=== PATIENT | female | born 1995 | race Caucasian/White ===

== ENCOUNTER 2017-04-05 01:28 | Emergency (ER) | payer OTHER ==
--- NOTE | 2017-04-05 02:07 | EDM.PDOC ---
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 Onset: Sudden Duration: Hour(s): (2 hours ago), Improving Location: Reports: Back Quality: Reports: Ache Severity: Moderate Improves with: Reports: None Worsens with: Reports: None Context: Reports: Activity, Lifting Associated Symptoms: Reports: No Other Symptoms Lower Back Pain Score (Numeric/FACES): 4 - Related Data Allergies Allergy/AdvReac Type Severity Reaction Status Date / Time Sulfa (Sulfonamide Allergy Itching Verified 04/05/17 01:31 Antibiotics) Home Meds: Home Meds Ethinyl Estradiol/Drospirenone [Ocella 3 MG-0.03 MG] 1 cap PO DAILY 04/05/17 [ History] FLUoxetine HCl [Prozac] 1 cap PO DAILY 04/05/17 [History] Ibuprofen [Advil] 400 mg PO Q6HR PRN 04/05/17 [History] Oseltamivir [Tamiflu] 1 cap PO BID 04/05/17 [History] Social & Family History - Tobacco Use Smoking Status *Q: Never Smoker Second Hand Smoke Exposure: No - Caffeine Use Caffeine Use: Reports: Energy Drinks, Soda - Recreational Drug Use Recreational Drug Use: No ED ROS GENERAL - Review of Systems Review Of Systems: See Below Constitutional: Reports: No Symptoms HEENT: Reports: No Symptoms Respiratory: Reports: No Symptoms Cardiovascular: Reports: No Symptoms Endocrine: Reports: No Symptoms GI/Abdominal: Reports: No Symptoms : Reports: No Symptoms Musculoskeletal: Reports: No Symptoms Skin: Reports: No Symptoms Neurological: Reports: No Symptoms Psychiatric: Reports: No Symptoms Hematologic/Lymphatic: Reports: No Symptoms Immunologic: Reports: No Symptoms ED EXAM, GENERAL - Physical Exam Exam: See Below Exam Limited By: No Limitations General Appearance: Alert, WD/WN, No Apparent Distress Eye Exam: Bilateral Eye: EOMI, PERRL Ears: Normal External Exam, Normal Canal, Hearing Grossly Normal, Normal TMs Ear Exam: Bilateral Ear: Auricle Normal, Canal Normal, TM normal Nose: Normal Inspection, Normal Mucosa, No Blood Throat/Mouth: Normal Inspection, Normal Lips, Normal Teeth, Normal Gums, Normal Oropharynx, Normal Voice, No Airway Compromise Head: Atraumatic, Normocephalic Neck: Normal Inspection, Supple, Non-Tender, Full Range of Motion Respiratory/Chest: No Respiratory Distress, Lungs Clear, Normal Breath Sounds, No Accessory Muscle Use, Chest Non-Tender Cardiovascular: Normal Peripheral Pulses, Regular Rate, Rhythm, No Edema, No Gallop, No JVD, No Murmur, No Rub GI/Abdominal: Normal Bowel Sounds, Soft, Non-Tender, No Organomegaly, No Distention, No Abnormal Bruit, No Mass (Female) Exam: Deferred Rectal (Female) Exam: Deferred Back Exam: Muscle Spasm, Paraspinal Tenderness (Right lumbar area), Other ( Scoliosis) Extremities: Normal Inspection, Normal Range of Motion, Non-Tender, Normal Capillary Refill, No Pedal Edema Neurological: Alert, Oriented, CN II-XII Intact, Normal Cognition, Normal Gait, Normal Reflexes, No Motor/Sensory Deficits Psychiatric: Normal Affect, Normal Mood Skin Exam: Warm, Dry, Intact, Normal Color, No Rash Lymphatic: No Adenopathy Course - Vital Signs Last Recorded V/S: Last Vital Signs Temp 98.7 F 04/05/17 01:40 Pulse 78 04/05/17 01:40 Resp 14 04/05/17 01:40 BP 111/68 04/05/17 01:40 Pulse Ox 100 04/05/17 01:40 Departure - Departure Time of Disposition: 02:30 Disposition: Home, Self-Care 01 Condition: Good Clinical Impression: Muscle spasm of back - Discharge Information Instructions: Muscle Cramps and Spasms, [id number], Back Pain, Adult, Easy-to -Read Referrals: Tanya Tabor NP [Primary Care Provider] - Forms: ED Department Discharge Care Plan Goals: ED HPI GENERAL MEDICAL PROBLEM - General Chief Complaint: Back Pain or Injury Stated Complaint: Back injury Source of Information: Reports: Patient History Limitations: Reports: No Limitations - History of Present Illness INITIAL COMMENTS - FREE TEXT/NARRATIVE: Patient is a 21-year-old who was who works at [employer] was brought to the ER secondary to lower back injury 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 Onset: Sudden Duration: Hour(s): (2 hours ago), Improving Location: Reports: Back Quality: Reports: Ache Severity: Moderate Improves with: Reports: None Worsens with: Reports: None Context: Reports: Activity, Lifting Associated Symptoms: Reports: No Other Symptoms Lower Back Pain Score (Numeric/FACES): 4 - Related Data Allergies Allergy/AdvReac Type Severity Reaction Status Date / Time Sulfa (Sulfonamide Allergy Itching Verified 04/05/17 01:31 Antibiotics) Home Meds: Home Meds Ethinyl Estradiol/Drospirenone [Ocella 3 MG-0.03 MG] 1 cap PO DAILY 04/05/17 [ History] FLUoxetine HCl [Prozac] 1 cap PO DAILY 04/05/17 [History] Oseltamivir [Tamiflu] 1 cap PO BID 04/05/17 [History] Social & Family History - Tobacco Use Smoking Status *Q: Never Smoker Second Hand Smoke Exposure: No - Caffeine Use Caffeine Use: Reports: Energy Drinks, Soda - Recreational Drug Use Recreational Drug Use: No ED ROS GENERAL - Review of Systems Review Of Systems: See Below Constitutional: Reports: No Symptoms HEENT: Reports: No Symptoms Respiratory: Reports: No Symptoms Cardiovascular: Reports: No Symptoms Endocrine: Reports: No Symptoms GI/Abdominal: Reports: No Symptoms : Reports: No Symptoms Musculoskeletal: Reports: No Symptoms Skin: Reports: No Symptoms Neurological: Reports: No Symptoms Psychiatric: Reports: No Symptoms Hematologic/Lymphatic: Reports: No Symptoms Immunologic: Reports: No Symptoms ED EXAM, GENERAL - Physical Exam Exam: See Below Exam Limited By: No Limitations General Appearance: Alert, WD/WN, No Apparent Distress Eye Exam: Bilateral Eye: EOMI, PERRL Ears: Normal External Exam, Normal Canal, Hearing Grossly Normal, Normal TMs Ear Exam: Bilateral Ear: Auricle Normal, Canal Normal, TM normal Nose: Normal Inspection, Normal Mucosa, No Blood Throat/Mouth: Normal Inspection, Normal Lips, Normal Teeth, Normal Gums, Normal Oropharynx, Normal Voice, No Airway Compromise Head: Atraumatic, Normocephalic Neck: Normal Inspection, Supple, Non-Tender, Full Range of Motion Respiratory/Chest: No Respiratory Distress, Lungs Clear, Normal Breath Sounds, No Accessory Muscle Use, Chest Non-Tender Cardiovascular: Normal Peripheral Pulses, Regular Rate, Rhythm, No Edema, No Gallop, No JVD, No Murmur, No Rub GI/Abdominal: Normal Bowel Sounds, Soft, Non-Tender, No Organomegaly, No Distention, No Abnormal Bruit, No Mass (Female) Exam: Deferred Rectal (Female) Exam: Deferred Back Exam: Muscle Spasm, Paraspinal Tenderness (Right lumbar area), Other ( Scoliosis) Extremities: Normal Inspection, Normal Range of Motion, Non-Tender, Normal Capillary Refill, No Pedal Edema Neurological: Alert, Oriented, CN II-XII Intact, Normal Cognition, Normal Gait, Normal Reflexes, No Motor/Sensory Deficits Psychiatric: Normal Affect, Normal Mood Skin Exam: Warm, Dry, Intact, Normal Color, No Rash Lymphatic: No Adenopathy Course - Vital Signs Last Recorded V/S: Last Vital Signs Temp 98.7 F 04/05/17 01:40 Pulse 78 04/05/17 01:40 Resp 14 04/05/17 01:40 BP 111/68 04/05/17 01:40 Pulse Ox 100 04/05/17 01:40 Departure - Departure Disposition: Home, Self-Care 01 Condition: Good Clinical Impression: Muscle spasm of back - Discharge Information Instructions: Muscle Cramps and Spasms, [id number], Back Pain, Adult, Easy-to -Read Referrals: Tanya Tabor NP [Primary Care Provider] - Patient will be placed i on Flexeril 10 mg 3 times a day for 10 days Motrin 200 mg 2 tablets every 6 hours
== END 2017-04-05 02:50 | disposition home or self-care (01) ==
LOC: LL.ED 01:28
DX: M62.830 Muscle spasm of back (principal); M41.9 Scoliosis, unspecified; Z88.2 Allergy status to sulfonamides; Z79.899 Other long term (current) drug therapy
CPT/HCPCS: 99283

== ENCOUNTER 2017-10-11 18:29 | Inpatient (IN) | payer BC ==
[2017-10-11] MEDS ORDERED: Famotidine 20 MG/2 ML SDV IVPUSH ONE (18:58)
[2017-10-11] MEDS ORDERED: Lactated Ringers 1,000 ML IV ONE (18:58)
[2017-10-11] MEDS ORDERED: Ondansetron 4 MG/2 ML SDV IVPUSH ONE (18:58)
[2017-10-11] MEDS ORDERED: Pantoprazole 40 MG Vial IVPUSH ONE (18:58)
--- NOTE | 2017-10-11 18:58 | EDM.PDOC ---
ED HPI GENERAL MEDICAL PROBLEM - General Chief Complaint: Abdominal Pain Stated Complaint: abdominal pain Time Seen by Provider: 10/11/17 18:45 Source of Information: Reports: Patient, Family (Telephone consultation with the patient's mother), Old Records ([facility] chart/ EMR), Other (Friend) History Limitations: Reports: No Limitations - History of Present Illness INITIAL COMMENTS - FREE TEXT/NARRATIVE: The patient was brought to the emergency room via private automobile by her roommate for evaluation of progressive mostly left upper quadrant abdominal pain associated with some nausea with symptoms worsening since about 4 PM this afternoon. She did have one episode of emesis prior to arrival shortly after taking 400 mg of OTC ibuprofen. Note additional emesis 1 in the emergency room shortly after arrival. Her symptoms actually began on 10/08 with onset of her menses, which was normal, with the patient initially thinking that it was menstrual cramps and possibly exacerbation of her chronic low back pain. She did see her chiropractor on 10/08 with intermittent abdominal complaints since that time. No recent history of heartburn, diarrhea, melena, gross hematochezia , or any food intolerance, including fatty foods, etc. with last bowel movement normal at about 17:00 hours this afternoon. No history of gross hematuria, colic , dysuria, or other UTI symptoms. She denies any known exposure to infection or food poisoning. The patient also denies any recent fever, cough, wheezing, dyspnea, etc... She has not had much to eat or drink today, although did attempt to eat some banana bread at about 17:15 hours this afternoon. Onset: Gradual Onset Date: 10/08/17 Duration: Constant, Getting Worse, Other (As above) Location: Reports: Abdomen. Denies: Neck, Chest, Back, Upper Extremity, Left, Upper Extremity, Right, Generalized, Radiates to Quality: Reports: Same as Previous Episode, Stabbing, Other (Cramping) Severity: Moderate Improves with: Reports: None Worsens with: Reports: None Context: Reports: Other (As above). Denies: Sick Contact Associated Symptoms: Reports: Nausea/Vomiting. Denies: Confusion, Chest Pain, Cough, Diaphoresis, Fever/Chills, Headaches, Loss of Appetite, Malaise, Shortness of Breath, Syncope, Weakness Treatments SERVICE DISPATCHER: Reports: NSAIDS (As above with emesis shortly thereafter) Left Upper Abdominal Pain Score (Numeric/FACES): 8 - Related Data Allergies Allergy/AdvReac Type Severity Reaction Status Date / Time Sulfa (Sulfonamide Allergy Itching Verified 10/11/17 18:45 Antibiotics) Home Meds: Home Meds Ethinyl Estradiol/Drospirenone [Ocella 3 MG-0.03 MG] 1 cap PO DAILY 04/05/17 [ History] FLUoxetine HCl [Prozac] 1 cap PO DAILY 04/05/17 [History] Ibuprofen [Advil] 400 mg PO Q6HR PRN 04/05/17 [History] buPROPion HCl [Wellbutrin Xl] 150 mg PO DAILY 10/11/17 [History] Past Medical History HEENT History: Reports: None. Denies: Allergic Rhinitis, Cataract, Glaucoma, Hard of Hearing, Impaired Vision, Macular Degeneration, Otitis Media, Retinal Detachment Cardiovascular History: Reports: Syncope, Other (See Below). Denies: Afib, Aneurysm, Arrhythmia, Blood Clots/VTE/DVT, CAD, Heart Murmur, High Cholesterol, Hypertension, RI, PVD Other Cardiovascular History: Vasovagal syncope with blood draws with no previous workup. Patient does not know her cholesterol status. Respiratory History: Reports: None. Denies: Asthma, COPD, Intubation, Difficult , Intubation, Previous, PE, Pneumothorax, Sleep Apnea Gastrointestinal History: Reports: None. Denies: Celiac Disease, Cholelithiasis , Gastritis, GERD, GI Bleed, Hepatitis, Inflammatory Bowel Disease, Irritable Bowel Syndrome, Jaundice, Pancreatitis, PUD Genitourinary History: Reports: None. 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 Musculoskeletal History: Reports: Arthritis, Back Pain, Chronic, Osteoarthritis. Denies: Fracture, Fibromyalgia, Gout, Neck Pain, Chronic, RA, SLE Other Musculoskeletal History: Scoliosis Neurological History: Reports: None. Denies: Cerebral Aneurysms, Concussion, CVA, Headaches, Chronic, Head Trauma, Migraines, MS, Parkinson's, Seizure, TIA Psychiatric History: Reports: ADHD, Anxiety, Depression. Denies: Psych Hospitalization(s), PTSD, Suicide Attempt, Suicidal Ideation Endocrine/Metabolic History: Reports: None. Denies: Diabetes, Type I, Diabetes , Type II, Diabetes Mellitus, Type 3c, Hypothyroidism, IDDM Hematologic History: Reports: None. Denies: Anemia, Blood Transfusion(s), Iron Deficiency Immunologic History: Reports: None. Denies: AIDS, HIV, SLE Oncologic (Cancer) History: Reports: None. Denies: Basal Cell Carcinoma, Breast , Hodgkin's Lymphoma, Leukemia, Lymphoma, Malignant Melanoma, Non-Hodgkin's Lymphoma, Squamous Cell Carcinoma Dermatologic History: Reports: None, Other (See Below). Denies: Eczema, Psoriasis Other Dermatologic History: Acne. History of tinea versicolor. - Infectious Disease History Infectious Disease History: Reports: None. Denies: C-Difficile, Chicken Pox, Meningitis, Mononucleosis, MRSA, Mumps, Pertussis (Whooping Cough), Rheumatic Fever, Rubella, Scarlet Fever, Shingles, TB, VRE - Past Surgical History Head Surgeries/Procedures: Reports: None HEENT Surgical History: Reports: Other (See Below). Denies: Adenoidectomy, Cataract Surgery, Eye Surgery, Laser Surgery, Myringotomy w Tube(s), Naso-Sinus Surgery, Oral Surgery, Tonsillectomy Other HEENT Surgeries/Procedures: Pt states that she "had something removed from her lip when she was 7 years old" Cardiovascular Surgical History: Reports: None. Denies: Varicose Respiratory Surgical History: Reports: None. Denies: Thoracentesis GI Surgical History: Reports: None. Denies: Appendectomy, Cholecystectomy, Colonoscopy, EGD, Hernia, Abdominal, Hernia, Inguinal, Hernia Repair/Other Female Surgical History: Reports: None. Denies: Tubal Ligation Endocrine Surgical History: Reports: None. Denies: Thyroid Biopsy Neurological Surgical History: Reports: None. Denies: C-Spine, Discectomy, Laminectomy, Lumbar Spine, Spinal Fusion, Thoracic Spine, Vertebroplasty Musculoskeletal Surgical History: Reports: None. Denies: Arthroscopic Procedure , Carpal Tunnel, Ganglion Cyst, Joint Replacement, ORIF, Shoulder Surgery Oncologic Surgical History: Reports: None Dermatological Surgical History: Reports: None - Past Imaging History Past Imaging History: Reports: None Social & Family History - Family History HEENT: Reports: Glaucoma, Other (See Below). Denies: Macular Degeneration, Retinal Detachment Other HEENT Family History: Maternal grandmother with glaucoma and diabetic retinopathy. Cardiac: Reports: CAD, Heart Failure, Hypertension, RI, Other (See Below). Denies: Afib, Aneurysm, Arrhythmia, Blood Clots/VTE/DVT, High Cholesterol, Pacemaker, Syncope Other Cardiac Family History: Paternal grandmother history of recurrent MIs and CHF with initial RI at age 57 with CABG 3 at that time and subsequent PTCA/ stents. Father with hypertension. Respiratory: Reports: None. Denies: Asthma, COPD, PE, Pneumothorax, Sleep Apnea GI: Reports: Celiac Disease, Other (See Below). Denies: Cholelithiasis, Colon Polyps, GERD, GI bleed, Hepatitis, Inflammatory Bowel Disease, Irritable Bowel Syndrome, Pancreatitis, PUD Other GI Family History: Paternal grandmother with celiac disease. : Reports: None. Denies: Dialysis, Renal Calculus, Renal Disease/ Insufficiency OBGYN: Reports: Other (See Below). Denies: Dysfunctional uterine bleeding, Endometriosis, Fibroids, Recurrent Spontaneous Other OBGYN Family History: Severe dysmenorrhea in 2 sisters. Musculoskeletal: Reports: None. Denies: Gout, Osteoarthritis, RA, SLE Neurological: Reports: TIA, Other (See Below). Denies: Alzheimers Disease, Cerebral Aneurysms, CVA, Dementia, Migraines, MS, Parkinson's, Seizure Other Neurological Family History: Paternal grandmother's history of recurrent TIAs. Psychiatric: Reports: Anxiety, Depression, Other (See Below). Denies: Abuse, Victim of, ADD, ADHD, Psych Hospitalization(s), PTSD, Suicide Attempt Other Psychiatric Family History: Anxiety depression disorder in mother, maternal grandmother, and sister. Endocrine/Metabolic: Reports: Diabetes, type II, IDDM, Other (See Below). Denies: Diabetes, Type I, Diabetes Mellitus, Type 3c, Hypothyroidism Other Endocrine/Metabolic Family History: Maternal grandmother with IDDM. Hematologic: Reports: None. Denies: Anemia, SLE, Transfusion Reaction Immunologic: Reports: None. Denies: AIDS, HIV, SLE Dermatologic: Reports: Eczema, Other (See Below). Denies: Psoriasis Other Dermatologic Family History: Mother with eczema. Oncologic: Reports: None. Denies: Breast, Cervix, Colon, Hodgkin's Lymphoma, Leukemia, Lymphoma, Non-Hodgkin's Lymphoma, Ovarian, Skin, Uterine - Tobacco Use Smoking Status *Q: Never Smoker Tobacco Use Within Last Twelve Months: No Used Tobacco, but Quit: No Smoking Cessation Information Provided To Patient: No Second Hand Smoke Exposure: No Second Hand Smoke Education Provided: No - Caffeine Use Caffeine Use: Reports: Energy Drinks (1 can 2 times per month), Soda (1 soda per day). Denies: Coffee, Tea - Alcohol Use Alcohol Use History: Yes Days Per Week of Alcohol Use: 1 Number of Drinks Per Day: 3 Number of Drinks Per Day Comment: Usually mixed drinks. No previous DWIs, problems with alcohol abuse, etc. Total Drinks Per Week: 3 Alcohol Use in Last Twelve Months: Yes Alcohol Use Frequency: Weekly - Recreational Drug Use Recreational Drug Use: No Drug Use in Last 12 Months: No Recreational Drug Type: Reports: Marijuana/Hashish (Experimental 1 at age 21.) . 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 ED EXAM, GI/ABD - Physical Exam Exam: See Below Exam Limited By: No Limitations General Appearance: Alert, WD/WN, No Apparent Distress, Anxious (Mild) Eyes: Bilateral: Normal Appearance (No nystagmus), EOMI (PERRLA) Ears: Normal External Exam, Normal Canal, Hearing Grossly Normal, Normal TMs Nose: Normal Inspection, Normal Mucosa, No Blood Throat/Mouth: Normal Inspection, Normal Lips, Normal Teeth, Normal Gums, Normal Voice, No Airway Compromise, Other (Dry oral mucosa). No: Dysphagia, Perioral Cyanosis Head: Atraumatic, Normocephalic. No: Facial Swelling, Facial Tenderness, Sinus Tenderness Neck: Normal Inspection, Supple, Non-Tender, Full Range of Motion. No: Carotid Bruit, Lymphadenopathy (L), Lymphadenopathy (R), Thyromegaly Respiratory/Chest: No Respiratory Distress, Lungs Clear, Normal Breath Sounds, No Accessory Muscle Use, Chest Non-Tender. No: Pleural Rub, Retractions Cardiovascular: Normal Peripheral Pulses, No Edema, No Gallop, No JVD, No Murmur , No Rub, Bradycardia (Mild to moderate with regular rhythm). No: Gallop/S3, Gallop/S4, Friction Rub GI/Abdominal Exam: Normal Bowel Sounds, No Organomegaly, No Distention, No Abnormal Bruit, No Mass, Pelvis Stable, Tender (Moderate left upper quadrant palpation pain). No: Guarding, Rigid, Rebound (Female) Exam: Deferred Rectal (Female) Exam: Normal Exam, Normal Rectal Tone, Heme - Stool. No: Fecal Impaction, Tenderness (No Garett space tenderness) Back Exam: Full Range of Motion, Other (Mild scoliosis). No: CVA Tenderness (L) , CVA Tenderness (R), Muscle Spasm Extremities: Normal Inspection, Normal Range of Motion, Non-Tender, No Pedal Edema, Normal Capillary Refill. No: La's Sign Neurological: Alert, Oriented, CN II-XII Intact, Normal Cognition, Normal Gait, Normal Reflexes (Negative Babinski's), No Motor/Sensory Deficits Psychiatric: Anxious (Mild), Depressed Mood (mild to moderate with adequate eye contact). No: Flat Affect, Tearful Skin Exam: Warm, Dry, Intact, Normal Color, No Rash, Stud(s) (Right lateral nasal). No: Diaphoretic, Ecchymosis, Pallor, Petechiae, Wound/Incision Course - Vital Signs Last Recorded V/S: Last Vital Signs Temp 36.9 C 10/11/17 18:45 Pulse 47 L 10/11/17 18:45 Resp 14 10/11/17 18:45 BP 106/50 L 10/11/17 18:45 Pulse Ox 100 10/11/17 18:45 Vital Signs - 24 hr 10/11/17 10/11/17 18:42 18:45 Temperature [ 36.9 C 36.9 C Oral] Pulse, 47 L 47 L Peripheral [ Right Pulse Oximetry] Respiratory 14 14 Rate Blood Pressure 106/50 L 106/50 L [Right Upper Arm] O2 Sat by Pulse 100 100 Oximetry - Orders/Labs/Meds Orders: Active Orders 24 hr Category Date Time Status Cardiac Monitoring [RC] . DIRECTED Care 10/11/17 20:42 Ordered Peripheral IV Care [RC] . DIRECTED Care 10/11/17 18:58 Active Nothing Per Oral Diet [DIET] Diet 10/11/17 Breakfast Active Abdomen Pelvis w Cont [CT] Stat Exams 10/11/17 18:58 Stop Req Abdomen Series w Chest 1V [CR] Stat Exams 10/11/17 18:58 Ordered CULTURE BLOOD [BC] Stat Lab 10/11/17 19:50 Received CULTURE BLOOD [BC] Stat Lab 10/11/17 19:55 Received CULTURE URINE [RM] Stat Lab 10/11/17 18:58 Ordered DRUG SCREEN, URINE [URCHEM] Stat Lab 10/11/17 19:12 Ordered H PYLORI STOOL ANTIGEN [MREF] Urgent Lab 10/11/17 18:58 Ordered OCCULT BLOOD DIAGNOSTIC [OP] Stat Lab 10/11/17 18:58 Ordered UA W/MICROSCOPIC [URIN] Stat Lab 10/11/17 18:58 Ordered Sodium Chloride 0.9% [Saline Flush] Med 10/11/17 18:58 Active 10 ml FLUSH ASDIRECTED PRN Blood Culture x2 Reflex Set [OM.PC] Urgent Oth 10/11/17 18:58 Ordered Obtain Past Medical Record [OM.PC] Urgent Oth 10/11/17 18:58 Active Peripheral IV Insertion Adult [OM.PC] Stat Oth 10/11/17 18:58 Ordered Resuscitation Status Stat Resus Stat 10/11/17 18:58 Ordered Medication Orders Sodium Chloride (Saline Flush) 10 ml FLUSH ASDIRECTED PRN PRN Reason: Keep Vein Open Last Admin: 10/11/17 20:07 Dose: 10 ml Labs: Laboratory Tests 10/11/17 10/11/17 10/11/17 Range/Units 19:50 19:50 19:50 WBC 14.4 H (4.0-10.2) K/uL RBC 4.19 (3.77-5.09) M/uL Hgb 12.5 (11.7-15.5) g/dL Hct 37.2 (34.0-46.0) % MCV 88.8 (84.0-98.0) fL MCH 29.8 (28.2-33.3) pg MCHC 33.6 (31.7-36.0) g/dL RDW 12.8 (11.2-14.1) % Plt Count 249 (150-350) K/uL Neut % (Auto) 85.3 H (45.0-80.0) % Lymph % (Auto) 9.3 L (10.0-50.0) % [place] % (Auto) 4.6 (2.0-14.0) % Eos % (Auto) 0.6 (0.0-5.0) % Baso % (Auto) 0.2 (0.0-2.0) % Neut # (Auto) 12.31 H (1.40-7.00) K/uL Lymph # (Auto) 1.34 (0.50-3.50) K/uL [place] # (Auto) 0.66 (0.00-1.00) K/uL Eos # (Auto) 0.09 (0.00-0.50) K/uL Baso # (Auto) 0.03 (0.00-0.20) K/uL PT 10.7 (9.8-11.7) SEC INR 1.0 APTT 22.1 (22.1-29.8) SEC Sodium (136-145) mmol/L Potassium (3.5-5.1) mmol/L Chloride (98-107) mmol/L Carbon Dioxide (21.0-32.0) mmol/L BUN (7-18) mg/dL Creatinine (0.51-1.17) mg/dL Est Cr Clr Drug Dosing mL/min Estimated GFR (MDRD) mL/min Glucose (74-106) mg/dL Lactic Acid (0.4-2.0) mmol/L Uric Acid (2.6-7.2) mg/dL Calcium (8.5-10.1) mg/dL Magnesium (1.8-2.4) mg/dL Total Bilirubin (0.2-1.0) mg/dL AST (15-37) U/L ALT (12-78) U/L Alkaline Phosphatase (46-116) IU/L Total Protein (6.4-8.2) g/dL Albumin (3.4-5.0) g/dL Amylase 62 (25-115) U/L Lipase (73-393) U/L HCG, Qual (NEGATIVE) Ethyl Alcohol (0.000-0.080) g/dL 10/11/17 10/11/17 10/11/17 Range/Units 19:50 19:50 19:50 WBC (4.0-10.2) K/uL RBC (3.77-5.09) M/uL Hgb (11.7-15.5) g/dL Hct (34.0-46.0) % MCV (84.0-98.0) fL MCH (28.2-33.3) pg MCHC (31.7-36.0) g/dL RDW (11.2-14.1) % Plt Count (150-350) K/uL Neut % (Auto) (45.0-80.0) % Lymph % (Auto) (10.0-50.0) % Bingham % (Auto) (2.0-14.0) % Eos % (Auto) (0.0-5.0) % Baso % (Auto) (0.0-2.0) % Neut # (Auto) (1.40-7.00) K/uL Lymph # (Auto) (0.50-3.50) K/uL Bingham # (Auto) (0.00-1.00) K/uL Eos # (Auto) (0.00-0.50) K/uL Baso # (Auto) (0.00-0.20) K/uL PT (9.8-11.7) SEC INR APTT (22.1-29.8) SEC Sodium 137 (136-145) mmol/L Potassium 4.0 (3.5-5.1) mmol/L Chloride 104 (98-107) mmol/L Carbon Dioxide 22.5 (21.0-32.0) mmol/L BUN 11 (7-18) mg/dL Creatinine 0.77 (0.51-1.17) mg/dL Est Cr Clr Drug Dosing 91.80 mL/min Estimated GFR (MDRD) > 60 mL/min Glucose 127 H (74-106) mg/dL Lactic Acid 1.2 (0.4-2.0) mmol/L Uric Acid 3.7 (2.6-7.2) mg/dL Calcium 9.1 (8.5-10.1) mg/dL Magnesium 1.7 L (1.8-2.4) mg/dL Total Bilirubin 0.2 (0.2-1.0) mg/dL AST 21 (15-37) U/L ALT 24 (12-78) U/L Alkaline Phosphatase 57 (46-116) IU/L Total Protein 7.8 (6.4-8.2) g/dL Albumin 3.8 (3.4-5.0) g/dL Amylase (25-115) U/L Lipase 177 (73-393) U/L HCG, Qual Negative (NEGATIVE) Ethyl Alcohol (0.000-0.080) g/dL 10/11/17 Range/Units 19:50 WBC (4.0-10.2) K/uL RBC (3.77-5.09) M/uL Hgb (11.7-15.5) g/dL Hct (34.0-46.0) % MCV (84.0-98.0) fL MCH (28.2-33.3) pg MCHC (31.7-36.0) g/dL RDW (11.2-14.1) % Plt Count (150-350) K/uL Neut % (Auto) (45.0-80.0) % Lymph % (Auto) (10.0-50.0) % [place] % (Auto) (2.0-14.0) % Eos % (Auto) (0.0-5.0) % Baso % (Auto) (0.0-2.0) % Neut # (Auto) (1.40-7.00) K/uL Lymph # (Auto) (0.50-3.50) K/uL [place] # (Auto) (0.00-1.00) K/uL Eos # (Auto) (0.00-0.50) K/uL Baso # (Auto) (0.00-0.20) K/uL PT (9.8-11.7) SEC INR APTT (22.1-29.8) SEC Sodium (136-145) mmol/L Potassium (3.5-5.1) mmol/L Chloride (98-107) mmol/L Carbon Dioxide (21.0-32.0) mmol/L BUN (7-18) mg/dL Creatinine (0.51-1.17) mg/dL Est Cr Clr Drug Dosing mL/min Estimated GFR (MDRD) mL/min Glucose (74-106) mg/dL Lactic Acid (0.4-2.0) mmol/L Uric Acid (2.6-7.2) mg/dL Calcium (8.5-10.1) mg/dL Magnesium (1.8-2.4) mg/dL Total Bilirubin (0.2-1.0) mg/dL AST (15-37) U/L ALT (12-78) U/L Alkaline Phosphatase (46-116) IU/L Total Protein (6.4-8.2) g/dL Albumin (3.4-5.0) g/dL Amylase (25-115) U/L Lipase (73-393) U/L HCG, Qual (NEGATIVE) Ethyl Alcohol 0.002 (0.000-0.080) g/dL Meds: Medications Generic Name Dose Route Start Last Admin Trade Name Freq PRN Reason Stop Dose Admin Sodium Chloride 10 ml 10/11/17 18:58 10/11/17 20:07 Saline Flush FLUSH 10 ml ASDIRECTED PRN Administration Keep Vein Open Discontinued Medications Generic Name Dose Route Start Last Admin Trade Name Freq PRN Reason Stop Dose Admin Famotidine 40 mg 10/11/17 18:58 10/11/17 20:03 Pepcid IVPUSH 10/11/17 18:59 40 mg ONETIME ONE Administration Lactated Ringer's 1,000 mls @ 999 mls/hr 10/11/17 18:58 10/11/17 19:58 Ringers, Lactated IV 10/11/17 19:58 999 mls/hr .BOLUS ONE Administration Ondansetron HCl 4 mg 10/11/17 18:58 10/11/17 19:59 Zofran IVPUSH 10/11/17 18:59 4 mg ONETIME ONE Administration Ondansetron HCl 4 mg 10/11/17 19:23 10/11/17 19:26 Zofran Odt PO 10/11/17 19:24 4 mg ONETIME ONE Administration Pantoprazole Sodium 40 mg 10/11/17 18:58 10/11/17 20:07 Protonix Iv IVPUSH 10/11/17 18:59 40 mg ONETIME ONE Administration - Radiology Interpretation Free Text/Narrative:: Acute abdominal x-rays shows evidence of possible pulmonary obstructive disease with no cardiomegaly, CHF, pulmonary infiltrates, pneumothorax, free air, fluid levels, ileus, obstruction, etc. Mild scoliosis noted. Legal Counsel shows normal sinus rhythm in the 80s with no ectopy or arrhythmia Departure - Departure Time of Disposition: 21:00 Disposition: Admitted As Inpatient 68 Clinical Impression: Abdominal pain, Osteoarthritis, Mixed anxiety depressive disorder, Dehydration , Hypomagnesemia, Bradycardia - Discharge Information *PRESCRIPTION DRUG MONITORING PROGRAM REVIEWED*: Not Applicable *COPY OF PRESCRIPTION DRUG MONITORING REPORT IN PATIENT NIKI: Not Applicable Referrals: PCP,Unknown [Primary Care Provider] - Forms: ED Department Discharge Care Plan Goals: See plan - Problem List & Annotations (1) Abdominal pain SNOMED Code(s): 52762337 Code(s): R10.9 - UNSPECIFIED ABDOMINAL PAIN Status: Acute Priority: High Current Visit: Yes Onset Date: ~10/08/17 Annotation/Comment:: Progressive abdominal pain this afternoon as above. Symptoms likely related to gastritis based on clinical exam with H. pylori to be collected during hospitalization. Note some mild leukocytosis possibly secondary to stress reaction from recurrent nausea and emesis with probable viral gastroenteritis component. Note that IV Rocephin and IV Flagyl will be given as GI prophylaxis. High dose IV Protonix and IV Pepcid were given upon patient's arrival in the emergency room. Patient did require both oral Zofran ODT and IV Zofran with some difficulty obtaining IV access initially. Telephone consultation with the patient's mother, who is in agreement with patient admission. Abdominal assessments with vitals with consideration of CT scan of the abdomen and pelvis depending on her clinical course. Possible further GI workup on an outpatient basis including EGD, etc.. Blood work to be repeated in the a.m. Qualifiers: Abdominal location: left upper quadrant Qualified Code(s): R10.12 - Left upper quadrant pain (2) Mixed anxiety depressive disorder SNOMED Code(s): 759103709 Code(s): F41.8 - OTHER SPECIFIED ANXIETY DISORDERS Status: Chronic Priority: Medium Current Visit: Yes Annotation/Comment:: Somewhat moderate control based on today's examination. Note patient is somewhat thin but no direct or known history of eating disorder. 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 Qualifiers: Osteoarthritis location: multiple joints Osteoarthritis type: primary Qualified Code(s): M15.0 - Primary generalized (osteo)arthritis (4) Bradycardia SNOMED Code(s): 39818328 Code(s): R00.1 - BRADYCARDIA, UNSPECIFIED Status: Acute Priority: Medium Current Visit: Yes Onset Date: 10/11/17 Annotation/Comment:: Initial bradycardia on arrival with cardiac specialist. Improved heart rate in the 80s prior to admission. Continue cardiac specialist during initial phases of hospitalization. No chest pain or anginal complaints. (5) Hypomagnesemia SNOMED Code(s): 145513089 Code(s): E83.42 - HYPOMAGNESEMIA Status: Acute Current Visit: Yes Annotation/Comment:: Initiate magnesium oxide therapy (6) Dehydration SNOMED Code(s): 79680650 Code(s): E86.0 - DEHYDRATION Status: Acute Priority: High Current Visit : Yes Annotation/Comment:: 1 L IV bolus of lactated Ringer's initiated in the emergency room with continuation of aggressive IV fluids during initial phases of hospitalization. She is fairly symptomatic including moderate generalized weakness and dizziness when performing abdominal x-rays. - Problem List Review Problem List Initiated/Reviewed/Updated: Yes - My Orders Last 24 Hours: My Active Orders 10/11/17 18:58 Peripheral IV Care [RC] . DIRECTED Abdomen Pelvis w Cont [CT] Stat Abdomen Series w Chest 1V [CR] Stat CULTURE URINE [RM] Stat H PYLORI STOOL ANTIGEN [MREF] Urgent OCCULT BLOOD DIAGNOSTIC [OP] Stat UA W/MICROSCOPIC [URIN] Stat Sodium Chloride 0.9% [Saline Flush] 10 ml FLUSH ASDIRECTED PRN Blood Culture x2 Reflex Set [OM.PC] Urgent Obtain Past Medical Record [OM.PC] Urgent Peripheral IV Insertion Adult [OM.PC] Stat Resuscitation Status Stat 10/11/17 19:12 DRUG SCREEN, URINE [URCHEM] Stat 10/11/17 19:50 CULTURE BLOOD [BC] Stat 10/11/17 19:55 CULTURE BLOOD [BC] Stat 10/11/17 20:42 Cardiac Monitoring [RC] . DIRECTED 10/11/17 Breakfast Nothing Per Oral Diet [DIET] - Assessment/Plan Admission H&P: Please use this note as an admission H&P Last 24 Hours: My Active Orders 10/11/17 18:58 Peripheral IV Care [RC] . DIRECTED Abdomen Pelvis w Cont [CT] Stat Abdomen Series w Chest 1V [CR] Stat CULTURE URINE [RM] Stat H PYLORI STOOL ANTIGEN [MREF] Urgent OCCULT BLOOD DIAGNOSTIC [OP] Stat UA W/MICROSCOPIC [URIN] Stat Sodium Chloride 0.9% [Saline Flush] 10 ml FLUSH ASDIRECTED PRN Blood Culture x2 Reflex Set [OM.PC] Urgent Obtain Past Medical Record [OM.PC] Urgent Peripheral IV Insertion Adult [OM.PC] Stat Resuscitation Status Stat 10/11/17 19:12 DRUG SCREEN, URINE [URCHEM] Stat 10/11/17 19:50 CULTURE BLOOD [BC] Stat 10/11/17 19:55 CULTURE BLOOD [BC] Stat 10/11/17 20:42 Cardiac Monitoring [RC] . DIRECTED 10/11/17 Breakfast Nothing Per Oral Diet [DIET] Assessment:: As above Plan: As above. Extensive precautions were given to the patient, who is in agreement with the treatment plan. See Patient Instructions for further treatment and plan.
[2017-10-11] MEDS ORDERED: Ondansetron 4 MG Tab.DIS PO ONE (19:23)
[2017-10-11] MEDS: Sodium Chloride 0.9% 10 ML Syringe FLUSH PRN ×2 (20:07→22:56)
[2017-10-11 20:17] LABS: CHLORIDE,CL 104 mmol/L (98-107); SODIUM,NA 137 mmol/L (136-145)
[2017-10-11] MEDS ORDERED: Acetaminophen 325 MG Tab PO PRN (21:03)
[2017-10-11] MEDS ORDERED: Ondansetron 4 MG/2 ML SDV IVPUSH PRN (21:03)
[2017-10-11] MEDS: Lactated Ringers 1,000 ML IV SCH (21:19)
[2017-10-11] MEDS ORDERED: cefTRIAXone 1 GM Vial ONE (21:57)
[2017-10-11] MEDS ORDERED: Ondansetron 4 MG/2 ML SDV ONE (22:05)
[2017-10-11] MEDS: cefTRIAXone 1 GM in Sodium Chloride 0.9% 100 ML IV SCH (22:10)
[2017-10-11] MEDS ORDERED: metroNIDAZOLE/Normal Saline 100 ML ONE (22:49)
[2017-10-11] MEDS ORDERED: Magnesium Oxide 400 MG Tab ONE (22:49)
[2017-10-11] MEDS ORDERED: Temazepam 15 MG Cap ONE (22:49)
[2017-10-11] MEDS: metroNIDAZOLE/Normal Saline 500 MG in Premix Bag 1 BAG IV SCH (22:56)
[2017-10-11] MEDS: Temazepam 15 MG Cap PO PRN (22:56)
[2017-10-11] MEDS: Magnesium Oxide 400 MG Tab PO SCH (22:56)
[2017-10-12] MEDS ORDERED: LORazepam 2 MG/ML SDV IVPUSH ONE (00:22)
[2017-10-12] MEDS ORDERED: HYDROmorphone 0.5 MG/0.5 ML Syringe IVPUSH PRN (00:23)
[2017-10-12] MEDS ORDERED: traMADol 50 MG Tab PO PRN (00:25)
[2017-10-12] MEDS ORDERED: Metoclopramide 10 MG/2 ML SDV ONE (00:28)
[2017-10-12] MEDS ORDERED: LORazepam 2 MG/ML SDV ONE (00:29)
[2017-10-12] MEDS: Sodium Chloride 0.9% 10 ML Syringe FLUSH PRN ×4 (00:34→21:48)
[2017-10-12] MEDS: Metoclopramide 10 MG/2 ML SDV IVPUSH SCH ×2 (00:35→06:18)
[2017-10-12] MEDS: Lactated Ringers 1,000 ML IV SCH (04:14)
[2017-10-12] MEDS: metroNIDAZOLE/Normal Saline 500 MG in Premix Bag 1 BAG IV SCH ×3 (06:19→21:46)
[2017-10-12] MEDS: Pantoprazole 40 MG Vial IVPUSH SCH ×2 (07:29→20:25)
[2017-10-12] MEDS: buPROPion 150 MG Tab.ER PO SCH (07:30)
[2017-10-12] MEDS: Sodium Chloride 0.9% 10 ML Syringe FLUSH SCH ×2 (07:30→20:26)
[2017-10-12] MEDS: FLUoxetine 20 MG Cap PO SCH (07:30)
[2017-10-12] MEDS: Magnesium Oxide 400 MG Tab PO SCH ×2 (07:30→17:41)
[2017-10-12] MEDS ORDERED: [UNRECOGNIZED DRUG - OTHER] PO SCH (08:00)
[2017-10-12] MEDS ORDERED: ETHINYL ESTRADIOL PO SCH (08:00)
[2017-10-12] MEDS ORDERED: DROSPIRENONE PO SCH (08:00)
[2017-10-12] MEDS: cefTRIAXone 1 GM in Sodium Chloride 0.9% 100 ML IV SCH ×2 (08:10→20:24)
[2017-10-12 08:27] LABS: CHLORIDE,CL 106 mmol/L (98-107); SODIUM,NA 140 mmol/L (136-145)
--- NOTE | 2017-10-12 09:02 | PCM.PN ---
- General Info Date of Service: 10/12/17 Admission Dx/Problem (Free Text): 1. Abdominal pain with nausea and emesis 2. Dehydration Functional Status: Reports: Pain Controlled. Denies: Tolerating Diet (Still nothing by mouth, however wants breakfast), Ambulating, Urinating, New Symptoms , Incentive Spirometry Pain Score: 0 - Review of Systems General: Reports: Fever (37.4 this morning), Weakness (Improved), Fatigue ( Improved), Chills. Denies: Malaise, Night Sweats, Appetite (As above) HEENT: Reports: No Symptoms. Denies: Dysphasia, Ear Pain, Eye Pain, Headaches, Post Nasal Drip, Sinus Congestion, Sore Throat, Rhinitis, Visual Changes Pulmonary: Reports: No Symptoms. Denies: Shortness of Breath, Cough, Sputum, Wheezing Cardiovascular: Reports: No Symptoms. Denies: Chest Pain, Palpitations, Dyspnea on Exertion, Orthopnea, Edema, Lightheadedness Gastrointestinal: Reports: No Symptoms, Other (No bowel movement to this point) . Denies: Abdominal Pain, Constipation, Decreased Appetite, Diarrhea, Flatus, Hematochezia, Melena, Nausea, Vomiting Genitourinary: Reports: No Symptoms. Denies: Dysuria, Frequency, Burning, Pain , Urgency, Incontinence, Hematuria, Retention, Flank Pain Musculoskeletal: Reports: No Symptoms. Denies: Neck Pain, Shoulder Pain, Arm Pain, Back Pain, Leg Pain Skin: Reports: No Symptoms. Denies: Diaphoresis, Bruising Neurological: Reports: Weakness (Improved as above). Denies: Confusion, Dizziness, Headache, Numbness, Paresthesia, Syncope, Tingling, Difficulty Walking Psychiatric: Reports: No Symptoms. Denies: Confusion, Depression, Anxiety, Agitation, Hallucinations - Patient Data Vitals - Most Recent: Last Vital Signs Temp 37.4 C 10/12/17 07:55 Pulse 83 10/12/17 07:55 Resp 18 10/12/17 07:55 BP 104/59 L 10/12/17 07:55 Pulse Ox 100 10/12/17 07:55 Vital Signs - 24 hr 10/11/17 10/11/17 10/11/17 18:42 18:45 20:54 Temperature [ 36.9 C 36.9 C Oral] Temperature [ 36.8 C Temporal] Pulse, 84 Peripheral [ Left Pulse Oximetry] Pulse, 47 L 47 L Peripheral [ Right Pulse Oximetry] Respiratory 14 14 12 Rate Blood Pressure 123/74 [Left Upper Arm ] Blood Pressure 106/50 L 106/50 L [Right Upper Arm] O2 Sat by Pulse 100 100 100 Oximetry 10/11/17 10/11/17 10/12/17 21:03 23:30 04:00 Temperature [ Oral] Temperature [ 37.1 C 37.2 C Temporal] Pulse, 52 L 90 Peripheral [ Left Pulse Oximetry] Pulse, Peripheral [ Right Pulse Oximetry] Respiratory 18 14 Rate Blood Pressure 139/83 130/84 [Left Upper Arm ] Blood Pressure [Right Upper Arm] O2 Sat by Pulse 100 100 100 Oximetry 10/12/17 07:55 Temperature [ Oral] Temperature [ 37.4 C Temporal] Pulse, 83 Peripheral [ Left Pulse Oximetry] Pulse, Peripheral [ Right Pulse Oximetry] Respiratory 18 Rate Blood Pressure 104/59 L [Left Upper Arm ] Blood Pressure [Right Upper Arm] O2 Sat by Pulse 100 Oximetry Weight - Most Recent: 51.075 kg I&O - Last 24 Hours: Intake & Output 10/11/17 10/12/17 10/12/17 22:59 06:59 14:59 Intake Total 2034 Output Total 170 700 400 Balance -170 1334 -400 Imaging Impressions - Last 24 Hours: As per emergency room note Lab Results Last 24 Hours: Laboratory Results - last 24 hr 10/11/17 10/11/17 10/11/17 Range/Units 19:50 19:50 19:50 WBC 14.4 H (4.0-10.2) K/uL RBC 4.19 (3.77-5.09) M/uL Hgb 12.5 (11.7-15.5) g/dL Hct 37.2 (34.0-46.0) % MCV 88.8 (84.0-98.0) fL MCH 29.8 (28.2-33.3) pg MCHC 33.6 (31.7-36.0) g/dL RDW 12.8 (11.2-14.1) % Plt Count 249 (150-350) K/uL Neut % (Auto) 85.3 H (45.0-80.0) % Lymph % (Auto) 9.3 L (10.0-50.0) % Hunt % (Auto) 4.6 (2.0-14.0) % Eos % (Auto) 0.6 (0.0-5.0) % Baso % (Auto) 0.2 (0.0-2.0) % Neut # (Auto) 12.31 H (1.40-7.00) K/uL Lymph # (Auto) 1.34 (0.50-3.50) K/uL Hunt # (Auto) 0.66 (0.00-1.00) K/uL Eos # (Auto) 0.09 (0.00-0.50) K/uL Baso # (Auto) 0.03 (0.00-0.20) K/uL PT 10.7 (9.8-11.7) SEC INR 1.0 APTT 22.1 (22.1-29.8) SEC Sodium (136-145) mmol/L Potassium (3.5-5.1) mmol/L Chloride (98-107) mmol/L Carbon Dioxide (21.0-32.0) mmol/L BUN (7-18) mg/dL Creatinine (0.51-1.17) mg/dL Est Cr Clr Drug Dosing mL/min Estimated GFR (MDRD) mL/min Glucose (74-106) mg/dL Lactic Acid (0.4-2.0) mmol/L Uric Acid (2.6-7.2) mg/dL Calcium (8.5-10.1) mg/dL Magnesium (1.8-2.4) mg/dL Total Bilirubin (0.2-1.0) mg/dL AST (15-37) U/L ALT (12-78) U/L Alkaline Phosphatase (46-116) IU/L Total Protein (6.4-8.2) g/dL Albumin (3.4-5.0) g/dL Amylase 62 (25-115) U/L Lipase (73-393) U/L HCG, Qual (NEGATIVE) Specimen Type Urine Color Urine Appearance Urine pH (5.0-9.0) Ur Specific Perry (1.005-1.030) Urine Protein (NEGATIVE) mg/dL Urine Glucose (UA) (NEGATIVE) mg/dL Urine Ketones (NEGATIVE) mg/dL Urine Occult Blood (NEGATIVE) Urine Nitrite (NEGATIVE) Urine Bilirubin (NEGATIVE) Urine Urobilinogen (0.2-1.0) E.U./dL Ur Leukocyte Esterase (NEGATIVE) Urine RBC /HPF Urine WBC /HPF Urine Bacteria (NONE TO FEW) /HPF Urine Opiates Screen (NEGATIVE) Urine Methadone Screen (NEGATIVE) U Acetaminophen Screen (NEGATIVE) Ur Barbiturates Screen (NEGATIVE) Ur Tricyclics Screen (NEGATIVE) Ur Phencyclidine Scrn (NEGATIVE) Ur Amphetamine Screen (NEGATIVE) U Methamphetamines Scrn (NEGATIVE) U Benzodiazepines Scrn (NEGATIVE) U Cocaine Metab Screen (NEGATIVE) U Marijuana (THC) Screen (NEGATIVE) Ethyl Alcohol (0.000-0.080) g/dL 10/11/17 10/11/17 10/11/17 Range/Units 19:50 19:50 19:50 WBC (4.0-10.2) K/uL RBC (3.77-5.09) M/uL Hgb (11.7-15.5) g/dL Hct (34.0-46.0) % MCV (84.0-98.0) fL MCH (28.2-33.3) pg MCHC (31.7-36.0) g/dL RDW (11.2-14.1) % Plt Count (150-350) K/uL Neut % (Auto) (45.0-80.0) % Lymph % (Auto) (10.0-50.0) % Hunt % (Auto) (2.0-14.0) % Eos % (Auto) (0.0-5.0) % Baso % (Auto) (0.0-2.0) % Neut # (Auto) (1.40-7.00) K/uL Lymph # (Auto) (0.50-3.50) K/uL Hunt # (Auto) (0.00-1.00) K/uL Eos # (Auto) (0.00-0.50) K/uL Baso # (Auto) (0.00-0.20) K/uL PT (9.8-11.7) SEC INR APTT (22.1-29.8) SEC Sodium 137 (136-145) mmol/L Potassium 4.0 (3.5-5.1) mmol/L Chloride 104 (98-107) mmol/L Carbon Dioxide 22.5 (21.0-32.0) mmol/L BUN 11 (7-18) mg/dL Creatinine 0.77 (0.51-1.17) mg/dL Est Cr Clr Drug Dosing 91.80 mL/min Estimated GFR (MDRD) > 60 mL/min Glucose 127 H (74-106) mg/dL Lactic Acid 1.2 (0.4-2.0) mmol/L Uric Acid 3.7 (2.6-7.2) mg/dL Calcium 9.1 (8.5-10.1) mg/dL Magnesium 1.7 L (1.8-2.4) mg/dL Total Bilirubin 0.2 (0.2-1.0) mg/dL AST 21 (15-37) U/L ALT 24 (12-78) U/L Alkaline Phosphatase 57 (46-116) IU/L Total Protein 7.8 (6.4-8.2) g/dL Albumin 3.8 (3.4-5.0) g/dL Amylase (25-115) U/L Lipase 177 (73-393) U/L HCG, Qual Negative (NEGATIVE) Specimen Type Urine Color Urine Appearance Urine pH (5.0-9.0) Ur Specific Perry (1.005-1.030) Urine Protein (NEGATIVE) mg/dL Urine Glucose (UA) (NEGATIVE) mg/dL Urine Ketones (NEGATIVE) mg/dL Urine Occult Blood (NEGATIVE) Urine Nitrite (NEGATIVE) Urine Bilirubin (NEGATIVE) Urine Urobilinogen (0.2-1.0) E.U./dL Ur Leukocyte Esterase (NEGATIVE) Urine RBC /HPF Urine WBC /HPF Urine Bacteria (NONE TO FEW) /HPF Urine Opiates Screen (NEGATIVE) Urine Methadone Screen (NEGATIVE) U Acetaminophen Screen (NEGATIVE) Ur Barbiturates Screen (NEGATIVE) Ur Tricyclics Screen (NEGATIVE) Ur Phencyclidine Scrn (NEGATIVE) Ur Amphetamine Screen (NEGATIVE) U Methamphetamines Scrn (NEGATIVE) U Benzodiazepines Scrn (NEGATIVE) U Cocaine Metab Screen (NEGATIVE) U Marijuana (THC) Screen (NEGATIVE) Ethyl Alcohol (0.000-0.080) g/dL 10/11/17 10/11/17 10/11/17 Range/Units 19:50 22:07 22:07 WBC (4.0-10.2) K/uL RBC (3.77-5.09) M/uL Hgb (11.7-15.5) g/dL Hct (34.0-46.0) % MCV (84.0-98.0) fL MCH (28.2-33.3) pg MCHC (31.7-36.0) g/dL RDW (11.2-14.1) % Plt Count (150-350) K/uL Neut % (Auto) (45.0-80.0) % Lymph % (Auto) (10.0-50.0) % Hunt % (Auto) (2.0-14.0) % Eos % (Auto) (0.0-5.0) % Baso % (Auto) (0.0-2.0) % Neut # (Auto) (1.40-7.00) K/uL Lymph # (Auto) (0.50-3.50) K/uL Hunt # (Auto) (0.00-1.00) K/uL Eos # (Auto) (0.00-0.50) K/uL Baso # (Auto) (0.00-0.20) K/uL PT (9.8-11.7) SEC INR APTT (22.1-29.8) SEC Sodium (136-145) mmol/L Potassium (3.5-5.1) mmol/L Chloride (98-107) mmol/L Carbon Dioxide (21.0-32.0) mmol/L BUN (7-18) mg/dL Creatinine (0.51-1.17) mg/dL Est Cr Clr Drug Dosing mL/min Estimated GFR (MDRD) mL/min Glucose (74-106) mg/dL Lactic Acid (0.4-2.0) mmol/L Uric Acid (2.6-7.2) mg/dL Calcium (8.5-10.1) mg/dL Magnesium (1.8-2.4) mg/dL Total Bilirubin (0.2-1.0) mg/dL AST (15-37) U/L ALT (12-78) U/L Alkaline Phosphatase (46-116) IU/L Total Protein (6.4-8.2) g/dL Albumin (3.4-5.0) g/dL Amylase (25-115) U/L Lipase (73-393) U/L HCG, Qual (NEGATIVE) Specimen Type Urinvoid Urine Color Dark yellow Urine Appearance Cloudy Urine pH 6.0 (5.0-9.0) Ur Specific Perry 1.025 (1.005-1.030) Urine Protein Trace H (NEGATIVE) mg/dL Urine Glucose (UA) Negative (NEGATIVE) mg/dL Urine Ketones 80 H (NEGATIVE) mg/dL Urine Occult Blood Large H (NEGATIVE) Urine Nitrite Negative (NEGATIVE) Urine Bilirubin Negative (NEGATIVE) Urine Urobilinogen 0.2 (0.2-1.0) E.U./dL Ur Leukocyte Esterase Negative (NEGATIVE) Urine RBC 75-100 H /HPF Urine WBC 5-10 H /HPF Urine Bacteria Many H (NONE TO FEW) /HPF Urine Opiates Screen Negative (NEGATIVE) Urine Methadone Screen Negative (NEGATIVE) U Acetaminophen Screen Negative (NEGATIVE) Ur Barbiturates Screen Negative (NEGATIVE) Ur Tricyclics Screen Negative (NEGATIVE) Ur Phencyclidine Scrn Negative (NEGATIVE) Ur Amphetamine Screen Negative (NEGATIVE) U Methamphetamines Scrn Negative (NEGATIVE) U Benzodiazepines Scrn Negative (NEGATIVE) U Cocaine Metab Screen Negative (NEGATIVE) U Marijuana (THC) Screen Negative (NEGATIVE) Ethyl Alcohol 0.002 (0.000-0.080) g/dL 10/12/17 10/12/17 Range/Units 07:30 07:30 WBC 11.9 H (4.0-10.2) K/uL RBC 3.82 (3.77-5.09) M/uL Hgb 11.6 L (11.7-15.5) g/dL Hct 34.1 (34.0-46.0) % MCV 89.3 (84.0-98.0) fL MCH 30.4 (28.2-33.3) pg MCHC 34.0 (31.7-36.0) g/dL RDW 12.8 (11.2-14.1) % Plt Count 209 (150-350) K/uL Neut % (Auto) 82.8 H (45.0-80.0) % Lymph % (Auto) 11.0 (10.0-50.0) % Hunt % (Auto) 6.0 (2.0-14.0) % Eos % (Auto) 0.0 (0.0-5.0) % Baso % (Auto) 0.2 (0.0-2.0) % Neut # (Auto) 9.82 H (1.40-7.00) K/uL Lymph # (Auto) 1.30 (0.50-3.50) K/uL Hunt # (Auto) 0.71 (0.00-1.00) K/uL Eos # (Auto) 0.00 (0.00-0.50) K/uL Baso # (Auto) 0.02 (0.00-0.20) K/uL PT (9.8-11.7) SEC INR APTT (22.1-29.8) SEC Sodium 140 (136-145) mmol/L Potassium 3.8 (3.5-5.1) mmol/L Chloride 106 (98-107) mmol/L Carbon Dioxide 23.7 (21.0-32.0) mmol/L BUN 8 (7-18) mg/dL Creatinine 0.75 (0.51-1.17) mg/dL Est Cr Clr Drug Dosing 96.47 mL/min Estimated GFR (MDRD) > 60 mL/min Glucose 117 H (74-106) mg/dL Lactic Acid (0.4-2.0) mmol/L Uric Acid (2.6-7.2) mg/dL Calcium 8.4 L (8.5-10.1) mg/dL Magnesium (1.8-2.4) mg/dL Total Bilirubin 0.3 (0.2-1.0) mg/dL AST 18 (15-37) U/L ALT 19 (12-78) U/L Alkaline Phosphatase 49 (46-116) IU/L Total Protein 6.8 (6.4-8.2) g/dL Albumin 3.3 L (3.4-5.0) g/dL Amylase 53 (25-115) U/L Lipase 158 (73-393) U/L HCG, Qual (NEGATIVE) Specimen Type Urine Color Urine Appearance Urine pH (5.0-9.0) Ur Specific Perry (1.005-1.030) Urine Protein (NEGATIVE) mg/dL Urine Glucose (UA) (NEGATIVE) mg/dL Urine Ketones (NEGATIVE) mg/dL Urine Occult Blood (NEGATIVE) Urine Nitrite (NEGATIVE) Urine Bilirubin (NEGATIVE) Urine Urobilinogen (0.2-1.0) E.U./dL Ur Leukocyte Esterase (NEGATIVE) Urine RBC /HPF Urine WBC /HPF Urine Bacteria (NONE TO FEW) /HPF Urine Opiates Screen (NEGATIVE) Urine Methadone Screen (NEGATIVE) U Acetaminophen Screen (NEGATIVE) Ur Barbiturates Screen (NEGATIVE) Ur Tricyclics Screen (NEGATIVE) Ur Phencyclidine Scrn (NEGATIVE) Ur Amphetamine Screen (NEGATIVE) U Methamphetamines Scrn (NEGATIVE) U Benzodiazepines Scrn (NEGATIVE) U Cocaine Metab Screen (NEGATIVE) U Marijuana (THC) Screen (NEGATIVE) Ethyl Alcohol (0.000-0.080) g/dL David Results Last 24 Hours: Microbiology 10/11/17 20:43 Stool Occult Blood (DAVID) - Final Stool / Feces Hemoccult positive with possible contamination from menses with specimen collected by rectal exam as per emergency room note Blood cultures 2 are pending Urine culture and sensitivity is pending Med Orders - Current: Current Medications Acetaminophen (Tylenol) 650 mg PO Q4H PRN PRN Reason: Pain Bupropion HCl (Wellbutrin Xl) 150 mg PO DAILY [facility] Last Admin: 10/12/17 07:30 Dose: 150 mg Famotidine (Pepcid) 20 mg IVPUSH Q12H [facility] Fluoxetine HCl (Prozac) 20 mg PO DAILY [facility] Last Admin: 10/12/17 07:30 Dose: 20 mg Hydromorphone HCl (Dilaudid) 0.5 mg IVPUSH Q6H PRN PRN Reason: Pain (severe 7-10) Ceftriaxone Sodium 1 gm/ (Sodium Chloride) 100 mls @ 200 mls/hr IV Q12H [facility] Last Admin: 10/12/17 08:10 Dose: 200 mls/hr Metronidazole 500 mg/ Premix 100 mls @ 100 mls/hr IV Q8H [facility] Last Admin: 10/12/17 06:19 Dose: 100 mls/hr Lactated Ringer's (Ringers, Lactated) 1,000 mls @ 150 mls/hr IV ASDIRECTED [facility] Last Admin: 10/12/17 04:14 Dose: 150 mls/hr Magnesium Oxide (Magnesium Oxide) 400 mg PO BID [facility] Last Admin: 10/12/17 07:30 Dose: 400 mg Metoclopramide HCl (Reglan) 10 mg IVPUSH Q6H [facility] Last Admin: 10/12/17 06:18 Dose: 10 mg Non-Formulary Medication (Ethinyl Estradiol/Drospirenone [Ocella 3 Mg-0.03 Mg]) 1 cap PO DAILY [facility] Ondansetron HCl (Zofran) 4 mg IVPUSH Q6H PRN PRN Reason: Nausea/Vomiting Last Admin: 10/11/17 22:09 Dose: 4 mg Pantoprazole Sodium (Protonix Iv) 40 mg IVPUSH Q12H [facility] Last Admin: 10/12/17 07:29 Dose: 40 mg Sodium Chloride (Saline Flush) 10 ml FLUSH ASDIRECTED PRN PRN Reason: Keep Vein Open Last Admin: 10/12/17 08:10 Dose: 10 ml Sodium Chloride (Saline Flush) 10 ml FLUSH Q12HR [facility] Last Admin: 10/12/17 07:30 Dose: 10 ml Temazepam (Restoril) 15 mg PO DAILY@2000 PRN PRN Reason: Insomnia Last Admin: 10/11/17 22:56 Dose: 15 mg Tramadol HCl (Ultram) 50 mg PO Q6H PRN PRN Reason: Pain (moderate 4-6) Last Admin: 10/12/17 04:11 Dose: 50 mg Discontinued Medications Ceftriaxone Sodium (Rocephin) Confirm Administered Dose 1 gm .ROUTE .STK-MED ONE Stop: 10/11/17 21:58 Last Admin: 10/12/17 04:20 Dose: Not Given Famotidine (Pepcid) 40 mg IVPUSH ONETIME ONE Stop: 10/11/17 18:59 Last Admin: 10/11/17 20:03 Dose: 40 mg Lactated Ringer's (Ringers, Lactated) 1,000 mls @ 999 mls/hr IV .BOLUS ONE Stop: 10/11/17 19:58 Last Admin: 10/11/17 19:58 Dose: 999 mls/hr Metronidazole (Flagyl 500 Mg In Ns 100 Ml) Confirm Administered Dose 100 mls @ as directed .ROUTE .STK-MED ONE Stop: 10/11/17 22:50 Last Admin: 10/12/17 04:19 Dose: Not Given Lorazepam (Ativan) 1 mg IVPUSH ONETIME ONE Stop: 10/12/17 00:23 Last Admin: 10/12/17 00:42 Dose: 1 mg Lorazepam (Ativan) Confirm Administered Dose 2 mg .ROUTE .STK-MED ONE Stop: 10/12/17 00:30 Last Admin: 10/12/17 04:19 Dose: Not Given Magnesium Oxide (Magnesium Oxide) Confirm Administered Dose 400 mg .ROUTE .STK- MED ONE Stop: 10/11/17 22:50 Last Admin: 10/12/17 04:20 Dose: Not Given Metoclopramide HCl (Reglan) Confirm Administered Dose 10 mg .ROUTE .STK-MED ONE Stop: 10/12/17 00:29 Last Admin: 10/12/17 04:20 Dose: Not Given Ondansetron HCl (Zofran) 4 mg IVPUSH ONETIME ONE Stop: 10/11/17 18:59 Last Admin: 10/11/17 19:59 Dose: 4 mg Ondansetron HCl (Zofran Odt) 4 mg PO ONETIME ONE Stop: 10/11/17 19:24 Last Admin: 10/11/17 19:26 Dose: 4 mg Ondansetron HCl (Zofran) Confirm Administered Dose 4 mg .ROUTE .STK-MED ONE Stop: 10/11/17 22:06 Last Admin: 10/12/17 04:20 Dose: Not Given Pantoprazole Sodium (Protonix Iv) 40 mg IVPUSH ONETIME ONE Stop: 10/11/17 18:59 Last Admin: 10/11/17 20:07 Dose: 40 mg Pantoprazole Sodium (Protonix Iv) 40 mg IVPUSH Q12H DAVID Temazepam (Restoril) Confirm Administered Dose 15 mg .ROUTE .STK-MED ONE Stop: 10/11/17 22:50 Last Admin: 10/12/17 04:20 Dose: Not Given - Exam Quality Assessment: DVT Prophylaxis. No: Supplemental Oxygen, Central Line/PICC , Urine Catheter, Skin Breakdown, Restraints General: Alert, Oriented, Cooperative, No Acute Distress HEENT: Pupils Equal, Pupils Reactive, EOMI, Mucous Membr. Moist/Central Neck: Supple, Trachea Midline, No JVD, No Thyromegaly, +2 Carotid Pulse wo Bruit. No: Lymphadenopathy Lungs: Clear to Auscultation, Normal Respiratory Effort. No: Rub Cardiovascular: Regular Rate, Regular Rhythm, No Murmurs. No: Gallops, Rubs GI/Abdominal Exam: Normal Bowel Sounds, Soft, Non-Tender, No Organomegaly, No Distention, No Abnormal Bruit, No Mass. No: Guarding (Female) Exam: Deferred Back Exam: Full Range of Motion, Other (Mild scoliosis). No: CVA Tenderness (L) , CVA Tenderness (R), Muscle Spasm Extremities: Normal Inspection, Normal Range of Motion, Non-Tender, No Pedal Edema, Normal Capillary Refill. No: La's Sign Peripheral Pulses: 2+: Radial (L), Radial (R), Dorsalis Pedis (L), Dorsalis Pedis (R) Skin: Warm, Dry, Intact, Other (Right lateral nasal stead; multiple tattoos. Skin turgor good.). No: Ecchymosis Neurological: No New Focal Deficit, Other (No clinical orthostasis) Psy/Mental Status: Anxious (Mild), Depressed (Mild to moderate). No: Agitated, Hallucinations, Withdrawal Symptoms - Problem List & Annotations (1) Abdominal pain SNOMED Code(s): 39599903 Code(s): R10.9 - UNSPECIFIED ABDOMINAL PAIN Status: Acute Priority: High Current Visit: Yes Onset Date: ~10/08/17 Qualifiers: Abdominal location: left upper quadrant Qualified Code(s): R10.12 - Left upper quadrant pain Annotation/Comment:: Abdominal pain, nausea, and emesis completely resolved with aggressive treatment, which initiated in the emergency room. Patient does wish to eat breakfast. Note previous progressive abdominal pain on day of admission as per emergency room note. Symptoms likely related to gastritis based on clinical exam with H. pylori to be collected during hospitalization. Note some mild leukocytosis possibly secondary to stress reaction from recurrent nausea and emesis with probable viral gastroenteritis component. Leukocytosis improved this morning with continuation of IV Rocephin and IV Flagyl as GI prophylaxis. High dose IV Protonix and IV Pepcid were given upon patient's arrival in the emergency room and was continued during this hospitalization. Patient did require both oral Zofran ODT and IV Zofran in the emergency room with some difficulty obtaining IV access initially. Additional IV Reglan on a scheduled basis was started yesterday shortly after admission with this to be changed to when necessary at this time. Telephone consultation on 10/11 with the patient's mother, who is in agreement with patient admission. Abdominal assessments with vitals have been stable and will be discontinued at this time. Consider CT scan of the abdomen and pelvis depending on her clinical course, although patient is completely symptom-free at this time. Possible further GI workup on an outpatient basis including EGD, etc.. Note UA does show evidence of microscopic hematuria likely secondary to contamination from her menses with additional bacteria and WBCs. No clinical symptoms or evidence of UTI with urine specimen set up for culture and sensitivity. Continue above antibiotics for now. [facility] physician assumes care in the a.m. with probable hospital discharge within the next 12 days. (2) Mixed anxiety depressive disorder SNOMED Code(s): 082322768 Code(s): F41.8 - OTHER SPECIFIED ANXIETY DISORDERS Status: Chronic Priority: Medium Current Visit: Yes Annotation/Comment:: Somewhat moderate control based on physical exam although somewhat improved this morning. Note patient is somewhat thin but no direct or known history of eating disorder, which the patient and her mother's friend deny this morning. Continue to observe her emotional status closely through her regular providers. Emotional support provided. Note that urine drug screen and alcohol level were normal. (3) Osteoarthritis SNOMED Code(s): 722309169 Code(s): M19.90 - UNSPECIFIED OSTEOARTHRITIS, UNSPECIFIED SITE Status: Chronic Priority: Medium Current Visit: Yes Qualifiers: Osteoarthritis location: multiple joints Osteoarthritis type: primary Qualified Code(s): M15.0 - Primary generalized (osteo)arthritis Annotation/Comment:: Stable by history including previous care director. (4) Bradycardia SNOMED Code(s): 59857376 Code(s): R00.1 - BRADYCARDIA, UNSPECIFIED Status: Acute Priority: Medium Current Visit: Yes Onset Date: 10/11/17 Annotation/Comment:: Initial bradycardia on arrival with personnel monitor. Improved heart rate in the 80s prior to admission and during initial phases of this hospitalization. Discontinue personnel monitor this morning. No chest pain or anginal complaints. (5) Hypomagnesemia SNOMED Code(s): 203873522 Code(s): E83.42 - HYPOMAGNESEMIA Status: Acute Current Visit: Yes Annotation/Comment:: Initiated magnesium oxide therapy with magnesium level and blood work to be repeated tomorrow morning. (6) Dehydration SNOMED Code(s): 28859207 Code(s): E86.0 - DEHYDRATION Status: Acute Priority: High Current Visit : Yes Annotation/Comment:: 1 L IV bolus of lactated Ringer's initiated in the emergency room with continuation of aggressive IV fluids during initial phases of hospitalization. She was fairly symptomatic, including moderate generalized weakness and dizziness when performing abdominal x-rays in the emergency room. Improved symptoms at this time with IV fluid rate to be decreased somewhat. Note elevated ketones in urine on admission. She was still somewhat hypotensive today. (7) Hypoalbuminemia SNOMED Code(s): 220829370 Code(s): E88.09 - OTH DISORDERS OF PLASMA-PROTEIN METABOLISM, NEC Status: Acute Priority: Medium Current Visit: Yes Onset Date: 10/12/17 Annotation/Comment:: Albumin level normal on admission however somewhat decreased today. Initiate high-protein Glucerna supplements twice a day as snacks. Close follow-up by regular provider after discharge. Calcium level also somewhat decreased, however observe for now. Note microcytosis with iron studies to be conducted in the a.m. - Problem List Review Problem List Initiated/Reviewed/Updated: Yes - My Orders Last 24 Hours: My Active Orders 10/11/17 18:58 Peripheral IV Care [RC] . DIRECTED Abdomen Series w Chest 1V [CR] Stat Abdomen Series w Chest 1V [CR] Stat CULTURE URINE [RM] Stat H PYLORI STOOL ANTIGEN [MREF] Urgent Sodium Chloride 0.9% [Saline Flush] 10 ml FLUSH ASDIRECTED PRN Blood Culture x2 Reflex Set [OM.PC] Urgent Peripheral IV Insertion Adult [OM.PC] Stat Resuscitation Status Stat 10/11/17 19:50 CULTURE BLOOD [BC] Stat 10/11/17 19:55 CULTURE BLOOD [BC] Stat 10/11/17 20:00 Temazepam [Restoril] 15 mg PO DAILY@1999 PRN 10/11/17 20:42 Cardiac Monitoring [RC] Q2HR 10/11/17 20:43 OCCULT BLOOD DIAGNOSTIC [OP] Stat 10/11/17 21:00 cefTRIAXone [Rocephin] 1 gm Sodium Chloride 0.9% [Normal Saline] 100 ml IV Q12H 10/11/17 21:03 Communication Order [RC] ROUTINE Communication Order [RC] ROUTINE Height and Weight [RC] DAILY Intake and Output Strict [RC] ASDIRECTED Oxygen Therapy [RC] PRN Pulse Oximetry [RC] ASDIRECTED Up With Assistance [RC] ASDIRECTED Vital Signs [RC] Q4HR OCCULT BLOOD DIAGNOSTIC [OP] Routine Acetaminophen [Tylenol] 650 mg PO Q4H PRN Ondansetron [Zofran] 4 mg IVPUSH Q6H PRN GM Immunization Reflex [OM.PC] Click To Edit 10/11/17 21:04 Communication, Vaccine [RC] PER UNIT ROUTINE 10/11/17 21:15 Lactated Ringers [Ringers, Lactated] 1,000 ml IV ASDIRECTED Magnesium Oxide 400 mg PO BID 10/11/17 22:00 metroNIDAZOLE/Normal Saline [Flagyl 500 MG in NS 100 ML] 500 mg Premix Bag 1 bag IV Q8H 10/11/17 22:07 DRUG SCREEN, URINE [URCHEM] Stat UA W/MICROSCOPIC [URIN] Stat 10/12/17 00:23 HYDROmorphone [Dilaudid] 0.5 mg IVPUSH Q6H PRN 10/12/17 00:25 traMADol [Ultram] 50 mg PO Q6H PRN 10/12/17 00:30 Metoclopramide [Reglan] 10 mg IVPUSH Q6H 10/12/17 08:00 Ethinyl Estradiol/Drospirenone [Ocella 3 MG-0.03 MG] 1 cap PO DAILY FLUoxetine [PROzac] 20 mg PO DAILY Pantoprazole [ProTONIX IV] 40 mg IVPUSH Q12H Sodium Chloride 0.9% [Saline Flush] 10 ml FLUSH Q12HR buPROPion [Wellbutrin XL] 150 mg PO DAILY 10/12/17 18:00 Famotidine [Pepcid] 20 mg IVPUSH Q12H 10/12/17 Breakfast Regular Diet [DIET] - Assessment Assessment:: As above - Plan Plan:: As above. Extensive precautions were given to the patient, who is in agreement with the treatment plan.
[2017-10-12] MEDS ORDERED: Metoclopramide 10 MG/2 ML SDV IVPUSH PRN (09:21)
[2017-10-12] MEDS ORDERED: Lactated Ringers 1,000 ML IV SCH (09:22)
[2017-10-12] MEDS ORDERED: Metoprolol Tartrate 5 MG/5 ML SDV IVPUSH ONE (12:15)
[2017-10-12] MEDS: Atenolol 25 MG Tab PO SCH (12:40)
[2017-10-12] MEDS ORDERED: Iopamidol 755 Mg/ML 100 ML Bottle IVPUSH ONE (13:33)
--- NOTE | 2017-10-12 13:38 | PCM.SN ---
- Free Text/Narrative Note: Note that prior to discontinuation of clinical research monitor patient exhibited some moderate sinus tachycardia with heart rate in the 160s with only minor ambulation. No chest pain or anginal type symptoms. Stat EKG does show a short VT interval with no delta waves present with T-wave inversion in leads V1 and V2 consistent with questionable borderline anterior wall cardiac ischemia, however likely secondary to lead position versus hypoplastic heart by previous chest x-ray. Note right cardiac axis. D-dimer and BNP were also elevated with otherwise normal cardiac enzymes. CTA of the chest using PE protocol and venous Doppler studies of the lower extremities will be conducted in this facility [facility]. No Lovenox therapy for now secondary to previous Hemoccult-positive stools and abdominal pain. No direct clinical evidence of DVT or PE. EKG, blood work, and chest x-ray to be repeated in a.m. Secondary to possible mild fluid overload patient's IV fluids will be decreased with no IV Lasix therapy for now secondary to previous dehydration. Vital signs will also be changed from previous every 6 hours to every 4 hours basis. Patient nonsymptomatic at rest. Note current BCP therapy for her dysmenorrhea.
[2017-10-12] MEDS ORDERED: Iopamidol 755 Mg/ML 100 ML Bottle ONE (14:04)
[2017-10-12] MEDS: Famotidine 20 MG/2 ML SDV IVPUSH SCH (17:41)
[2017-10-12] MEDS ORDERED: Pantoprazole 40 MG Vial IVPUSH SCH (19:00)
[2017-10-12] MEDS: Temazepam 15 MG Cap PO PRN (21:51)
[2017-10-13] MEDS: Famotidine 20 MG/2 ML SDV IVPUSH SCH (05:19)
[2017-10-13] MEDS: Sodium Chloride 0.9% 10 ML Syringe FLUSH PRN ×2 (05:19→09:12)
[2017-10-13] MEDS: metroNIDAZOLE/Normal Saline 500 MG in Premix Bag 1 BAG IV SCH (05:19)
[2017-10-13] MEDS: Pantoprazole 40 MG Vial IVPUSH SCH (07:14)
[2017-10-13] MEDS: buPROPion 150 MG Tab.ER PO SCH (07:14)
[2017-10-13] MEDS: Sodium Chloride 0.9% 10 ML Syringe FLUSH SCH (07:15)
[2017-10-13] MEDS: Magnesium Oxide 400 MG Tab PO SCH (07:15)
[2017-10-13] MEDS: FLUoxetine 20 MG Cap PO SCH (07:15)
[2017-10-13] MEDS: Atenolol 25 MG Tab PO SCH (07:26)
[2017-10-13 08:01] LABS: CHLORIDE,CL 108 mmol/L (98-107); SODIUM,NA 141 mmol/L (136-145)
[2017-10-13] MEDS: cefTRIAXone 1 GM in Sodium Chloride 0.9% 100 ML IV SCH (09:12)
--- NOTE | 2017-10-13 12:39 | PCM.DCSUM1 ---
Discharge Summary - Hospital Course Brief History: Patient admitted from ER for treatment of abdominal pain and dehydration. Diagnosis: Stroke: No - Discharge Data Discharge Date: 10/13/17 Discharge Disposition: Home, Self-Care 01 Condition: Good - Discharge Diagnosis/Problem(s) (1) Abdominal pain SNOMED Code(s): 14890872 ICD Code: R10.9 - UNSPECIFIED ABDOMINAL PAIN Status: Acute Priority: High Current Visit: Yes Onset Date: ~10/08/17 Problem Details: Abdominal pain, nausea/emesis remain completely resolved. Suspect gastritis. Viral etiology appears to be likely, however HPylorie is pending. Qualifiers: Abdominal location: left upper quadrant Qualified Code(s): R10.12 - Left upper quadrant pain (2) Bradycardia SNOMED Code(s): 21179549 ICD Code: R00.1 - BRADYCARDIA, UNSPECIFIED Status: Acute Priority: Medium Current Visit: Yes Onset Date: 10/11/17 Problem Details: Initial bradycardia on arrival with monitoring and evaluation advisor. Improved. No chest pain or anginal complaints. (3) Dehydration SNOMED Code(s): 13636970 ICD Code: E86.0 - DEHYDRATION Status: Acute Priority: High Current Visit: Yes Problem Details: Improved. Taking PO fluids well. (4) Hypoalbuminemia SNOMED Code(s): 998892426 ICD Code: E88.09 - OTH DISORDERS OF PLASMA-PROTEIN METABOLISM, NEC Status: Acute Priority: Medium Current Visit: Yes Onset Date: 10/12/17 Problem Details: Albumin level normal on admission however somewhat decreased today after IV fluids. Close follow-up by regular provider after discharge. Calcium level also somewhat decreased, however observe for now. HGB also trended down after fluid boluses. Note microcytosis. Low normal B12 and Folate. Normal iron and TIBC (5) Hypomagnesemia SNOMED Code(s): 817163195 ICD Code: E83.42 - HYPOMAGNESEMIA Status: Acute Current Visit: Yes Problem Details: Initiated magnesium oxide therapy with magnesium supplementation to be continued after discharge. 1.8 today (6) Mixed anxiety depressive disorder SNOMED Code(s): 225392181 ICD Code: F41.8 - OTHER SPECIFIED ANXIETY DISORDERS Status: Chronic Priority: Medium Current Visit: Yes Problem Details: Stable per history. Note patient is somewhat thin but no direct or known history of eating disorder , which the patient and her mother's friend deny this morning. Continue to observe her emotional status closely through her regular providers. Emotional support provided. Note that urine drug screen and alcohol level were normal. (7) Elevated d-dimer SNOMED Code(s): 038360394 ICD Code: R79.89 - OTHER SPECIFIED ABNORMAL FINDINGS OF BLOOD CHEMISTRY Status: Acute Priority: Medium Current Visit: Yes Problem Details: No respiratory complaints. Negative venous dopplar. Negative PE study of chest. Improved from 1280 to 473 today. - Patient Summary/Data Hospital Course: Patient improved with IV fluids and antiemetics. Suspect viral etiology of earlier nausea/emesis/abdominal pain. Negative venous US/PE study of chest (performed due to elevating DDImer) Stool negative for occult blood. Earlier + test, as well as hematuria in UA felt to be due to patient having menses. Pending H.Pylorie. Decreases in Mg, albumin, HGB observed. Suspect in part dilutional given IV fluids given during stay. ProBNP mildly elevated. Patient has no cardiac/respiratory history/complaints. Does have microcytosis. Recommend iron supplementation as well as BVitamins and Magnesium. Dietary modifications discussed that could be helpful. Patient to follow up at clinic within the next 2-3 weeks to have repeat labs. Further planning can be performed at that time. - Patient Instructions Diet: Regular Diet as Tolerated Activity: As Tolerated Driving: Do Not Drive Showering/Bathing: May Shower Notify Provider of: Fever, Increased Pain, Nausea and/or Vomiting Other/Special Instructions: Follow up in clinic in 2-3 weeks. Have blood work rechecked to look at blood levels, magnesium, Vitamin D. Recommend supplemental iron, B vitamin complex, magnesium, Vitamin D/k as we discussed. Follow up otherwise as needed if there are any problems. - Discharge Plan *PRESCRIPTION DRUG MONITORING PROGRAM REVIEWED*: Not Applicable *COPY OF PRESCRIPTION DRUG MONITORING REPORT IN PATIENT NIKI: Not Applicable Home Medications: Home Meds Ethinyl Estradiol/Drospirenone [Ocella 3 MG-0.03 MG] 1 cap PO DAILY 04/05/17 [ History] FLUoxetine HCl [Prozac] 1 cap PO DAILY 04/05/17 [History] Ibuprofen [Advil] 400 mg PO Q6HR PRN 04/05/17 [History] buPROPion HCl [Wellbutrin Xl] 150 mg PO DAILY 10/11/17 [History] Forms: ED Department Discharge Referrals: PCP,Unknown [Primary Care Provider] - - Discharge Summary/Plan Comment DC Time >30 min.: No - General Info Date of Service: 10/13/17 Admission Dx/Problem (Free Text: 1. Abdominal pain with nausea and emesis 2. Dehydration Subjective Update: Feels fine, wants to go home. Functional Status: Reports: Pain Controlled, Tolerating Diet, Ambulating, Urinating. Denies: New Symptoms - Review of Systems General: Reports: No Symptoms HEENT: Reports: No Symptoms Pulmonary: Reports: No Symptoms Cardiovascular: Reports: No Symptoms Gastrointestinal: Reports: No Symptoms Genitourinary: Reports: No Symptoms Musculoskeletal: Reports: No Symptoms Skin: Reports: No Symptoms Neurological: Reports: No Symptoms Psychiatric: Reports: No Symptoms - Patient Data Vitals - Most Recent: Last Vital Signs Temp 36.9 C 10/13/17 12:00 Pulse 75 10/13/17 12:00 Resp 18 10/13/17 12:00 BP 112/56 L 10/13/17 12:00 Pulse Ox 100 10/13/17 12:00 Weight - Most Recent: 52.277 kg I&O - Last 24 hours: Intake & Output 10/12/17 10/13/17 10/13/17 22:59 06:59 14:59 Intake Total 1350 450 120 Output Total 2550 200 200 Balance -1200 250 -80 Lab Results - Last 24 hrs: Laboratory Results - last 24 hr 10/12/17 10/12/17 10/13/17 Range/Units 12:25 12:25 06:55 WBC 6.0 (4.0-10.2) K/uL RBC 3.52 L (3.77-5.09) M/uL Hgb 10.5 L (11.7-15.5) g/dL Hct 32.2 L (34.0-46.0) % MCV 91.5 (84.0-98.0) fL MCH 29.8 (28.2-33.3) pg MCHC 32.6 (31.7-36.0) g/dL RDW 13.2 (11.2-14.1) % Plt Count 170 (150-350) K/uL Neut % (Auto) 55.3 (45.0-80.0) % Lymph % (Auto) 32.0 (10.0-50.0) % [place] % (Auto) 9.4 (2.0-14.0) % Eos % (Auto) 2.6 (0.0-5.0) % Baso % (Auto) 0.7 (0.0-2.0) % Neut # (Auto) 3.34 (1.40-7.00) K/uL Lymph # (Auto) 1.93 (0.50-3.50) K/uL [place] # (Auto) 0.57 (0.00-1.00) K/uL Eos # (Auto) 0.16 (0.00-0.50) K/uL Baso # (Auto) 0.04 (0.00-0.20) K/uL D-Dimer, Quantitative 1280 H (0-400) ng/mL Sodium (136-145) mmol/L Potassium (3.5-5.1) mmol/L Chloride (98-107) mmol/L Carbon Dioxide (21.0-32.0) mmol/L BUN (7-18) mg/dL Creatinine (0.51-1.17) mg/dL Est Cr Clr Drug Dosing mL/min Estimated GFR (MDRD) mL/min Glucose (74-106) mg/dL Calcium (8.5-10.1) mg/dL Magnesium (1.8-2.4) mg/dL Iron (50-175) ug/dL TIBC (250-450) ug/dL % Saturation Total Bilirubin (0.2-1.0) mg/dL AST (15-37) U/L ALT (12-78) U/L Alkaline Phosphatase (46-116) IU/L Creatine Kinase 56 (26-308) U/L Creatine Kinase Index 1.8 (0.0-2.5) % CK-MB (CK-2) 1.00 (0.00-3.60) ng/mL Troponin I 0.000 (0.000-0.056) ng/mL NT-Pro-B Natriuret Pep 635 H (0-125) pg/mL Total Protein (6.4-8.2) g/dL Albumin (3.4-5.0) g/dL Vitamin B12 (193-986) pg/mL Folate (8.6-58.9) ng/mL 10/13/17 10/13/17 10/13/17 Range/Units 06:55 06:55 06:55 WBC (4.0-10.2) K/uL RBC (3.77-5.09) M/uL Hgb (11.7-15.5) g/dL Hct (34.0-46.0) % MCV (84.0-98.0) fL MCH (28.2-33.3) pg MCHC (31.7-36.0) g/dL RDW (11.2-14.1) % Plt Count (150-350) K/uL Neut % (Auto) (45.0-80.0) % Lymph % (Auto) (10.0-50.0) % [place] % (Auto) (2.0-14.0) % Eos % (Auto) (0.0-5.0) % Baso % (Auto) (0.0-2.0) % Neut # (Auto) (1.40-7.00) K/uL Lymph # (Auto) (0.50-3.50) K/uL [place] # (Auto) (0.00-1.00) K/uL Eos # (Auto) (0.00-0.50) K/uL Baso # (Auto) (0.00-0.20) K/uL D-Dimer, Quantitative 473 H (0-400) ng/mL Sodium 141 (136-145) mmol/L Potassium 3.6 (3.5-5.1) mmol/L Chloride 108 H (98-107) mmol/L Carbon Dioxide 29.6 (21.0-32.0) mmol/L BUN 7 (7-18) mg/dL Creatinine 0.78 (0.51-1.17) mg/dL Est Cr Clr Drug Dosing 92.76 mL/min Estimated GFR (MDRD) > 60 mL/min Glucose 95 (74-106) mg/dL Calcium 8.2 L (8.5-10.1) mg/dL Magnesium 1.8 (1.8-2.4) mg/dL Iron 97 (50-175) ug/dL TIBC 296 (250-450) ug/dL % Saturation 32.85758 Total Bilirubin 0.1 L (0.2-1.0) mg/dL AST 19 (15-37) U/L ALT 21 (12-78) U/L Alkaline Phosphatase 41 L (46-116) IU/L Creatine Kinase 44 (26-308) U/L Creatine Kinase Index 1.6 (0.0-2.5) % CK-MB (CK-2) 0.70 (0.00-3.60) ng/mL Troponin I 0.000 (0.000-0.056) ng/mL NT-Pro-B Natriuret Pep 178 H (0-125) pg/mL Total Protein 5.9 L (6.4-8.2) g/dL Albumin 2.9 L (3.4-5.0) g/dL Vitamin B12 392 (193-986) pg/mL Folate 18.8 (8.6-58.9) ng/mL NGOC Results - Last 24 hrs: Microbiology 10/13/17 05:30 Stool Occult Blood (NGOC) - Final Stool / Feces NEGATIVE OCCULT BLOOD 10/11/17 19:55 Aerobic Blood Culture - Preliminary Blood - Venous - Lab Draw NO GROWTH AFTER 1 DAY Anaerobic Blood Culture - Preliminary NO GROWTH AFTER 1 DAY 10/11/17 19:50 Aerobic Blood Culture - Preliminary Blood - Venous NO GROWTH AFTER 1 DAY Anaerobic Blood Culture - Preliminary NO GROWTH AFTER 1 DAY Med Orders - Current: Current Medications Acetaminophen (Tylenol) 650 mg PO Q4H PRN PRN Reason: Pain Last Admin: 10/13/17 07:21 Dose: 650 mg Atenolol (Tenormin) 25 mg PO DAILY [facility] Last Admin: 10/13/17 07:26 Dose: Not Given Bupropion HCl (Wellbutrin Xl) 150 mg PO DAILY [facility] Last Admin: 10/13/17 07:14 Dose: 150 mg Famotidine (Pepcid) 20 mg IVPUSH Q12H [facility] Last Admin: 10/13/17 05:19 Dose: 20 mg Fluoxetine HCl (Prozac) 20 mg PO DAILY [facility] Last Admin: 10/13/17 07:15 Dose: 20 mg Ceftriaxone Sodium 1 gm/ (Sodium Chloride) 100 mls @ 200 mls/hr IV Q12H [facility] Last Admin: 10/13/17 09:12 Dose: 200 mls/hr Metronidazole 500 mg/ Premix 100 mls @ 100 mls/hr IV Q8H [facility] Last Admin: 10/13/17 05:19 Dose: 100 mls/hr Lactated Ringer's (Ringers, Lactated) 1,000 mls @ 50 mls/hr IV ASDIRECTED [facility] Last Admin: 10/12/17 14:58 Dose: 50 mls/hr Magnesium Oxide (Magnesium Oxide) 400 mg PO BID [facility] Last Admin: 10/13/17 07:15 Dose: 400 mg Metoclopramide HCl (Reglan) 10 mg IVPUSH Q6H PRN PRN Reason: Nausea/Vomiting Non-Formulary Medication (Ethinyl Estradiol/Drospirenone [Ocella 3 Mg-0.03 Mg]) 1 cap PO DAILY [facility] Ondansetron HCl (Zofran) 4 mg IVPUSH Q6H PRN PRN Reason: Nausea/Vomiting Last Admin: 10/11/17 22:09 Dose: 4 mg Pantoprazole Sodium (Protonix Iv) 40 mg IVPUSH Q12H [facility] Last Admin: 10/13/17 07:14 Dose: 40 mg Sodium Chloride (Saline Flush) 10 ml FLUSH ASDIRECTED PRN PRN Reason: Keep Vein Open Last Admin: 10/13/17 09:12 Dose: 10 ml Sodium Chloride (Saline Flush) 10 ml FLUSH Q12HR [facility] Last Admin: 10/13/17 07:15 Dose: 10 ml Temazepam (Restoril) 15 mg PO DAILY@2000 PRN PRN Reason: Insomnia Last Admin: 10/12/17 21:51 Dose: 15 mg Tramadol HCl (Ultram) 50 mg PO Q6H PRN PRN Reason: Pain (moderate 4-6) Last Admin: 10/12/17 04:11 Dose: 50 mg Discontinued Medications Ceftriaxone Sodium (Rocephin) Confirm Administered Dose 1 gm .ROUTE .STK-MED ONE Stop: 10/11/17 21:58 Last Admin: 10/12/17 04:20 Dose: Not Given Famotidine (Pepcid) 40 mg IVPUSH ONETIME ONE Stop: 10/11/17 18:59 Last Admin: 10/11/17 20:03 Dose: 40 mg Hydromorphone HCl (Dilaudid) 0.5 mg IVPUSH Q6H PRN PRN Reason: Pain (severe 7-10) Lactated Ringer's (Ringers, Lactated) 1,000 mls @ 999 mls/hr IV .BOLUS ONE Stop: 10/11/17 19:58 Last Admin: 10/11/17 19:58 Dose: 999 mls/hr Lactated Ringer's (Ringers, Lactated) 1,000 mls @ 150 mls/hr IV ASDIRECTED [facility] Last Admin: 10/12/17 04:14 Dose: 150 mls/hr Metronidazole (Flagyl 500 Mg In Ns 100 Ml) Confirm Administered Dose 100 mls @ as directed .ROUTE .STK-MED ONE Stop: 10/11/17 22:50 Last Admin: 10/12/17 04:19 Dose: Not Given Magnesium Sulfate/Dextrose (Magnesium 1 Gm In D5w 100 Ml) 100 mls @ 100 mls/hr IV ONETIME ONE Stop: 10/13/17 12:12 Last Admin: 10/13/17 11:46 Dose: 100 mls/hr Iopamidol (Isovue-370 (76%)) Confirm Administered Dose 100 ml .ROUTE .STK-MED ONE Stop: 10/12/17 14:05 Last Admin: 10/12/17 14:20 Dose: 100 ml Iopamidol (Isovue-370 (76%)) 100 ml IVPUSH ONETIME ONE Stop: 10/12/17 13:34 Last Admin: 10/12/17 18:26 Dose: Not Given Lorazepam (Ativan) 1 mg IVPUSH ONETIME ONE Stop: 10/12/17 00:23 Last Admin: 10/12/17 00:42 Dose: 1 mg Lorazepam (Ativan) Confirm Administered Dose 2 mg .ROUTE .STK-MED ONE Stop: 10/12/17 00:30 Last Admin: 10/12/17 04:19 Dose: Not Given Magnesium Oxide (Magnesium Oxide) Confirm Administered Dose 400 mg .ROUTE .STK- MED ONE Stop: 10/11/17 22:50 Last Admin: 10/12/17 04:20 Dose: Not Given Metoclopramide HCl (Reglan) 10 mg IVPUSH Q6H [facility] Last Admin: 10/12/17 06:18 Dose: 10 mg Metoclopramide HCl (Reglan) Confirm Administered Dose 10 mg .ROUTE .STK-MED ONE Stop: 10/12/17 00:29 Last Admin: 10/12/17 04:20 Dose: Not Given Metoprolol Tartrate (Lopressor) 2.5 mg IVPUSH ONETIME ONE Stop: 10/12/17 12:16 Last Admin: 10/12/17 12:39 Dose: 2.5 mg Ondansetron HCl (Zofran) 4 mg IVPUSH ONETIME ONE Stop: 10/11/17 18:59 Last Admin: 10/11/17 19:59 Dose: 4 mg Ondansetron HCl (Zofran Odt) 4 mg PO ONETIME ONE Stop: 10/11/17 19:24 Last Admin: 10/11/17 19:26 Dose: 4 mg Ondansetron HCl (Zofran) Confirm Administered Dose 4 mg .ROUTE .STK-MED ONE Stop: 10/11/17 22:06 Last Admin: 10/12/17 04:20 Dose: Not Given Pantoprazole Sodium (Protonix Iv) 40 mg IVPUSH ONETIME ONE Stop: 10/11/17 18:59 Last Admin: 10/11/17 20:07 Dose: 40 mg Pantoprazole Sodium (Protonix Iv) 40 mg IVPUSH Q12H [facility] Temazepam (Restoril) Confirm Administered Dose 15 mg .ROUTE .STK-MED ONE Stop: 10/11/17 22:50 Last Admin: 10/12/17 04:20 Dose: Not Given - Exam General: Reports: Alert, Oriented, Cooperative, No Acute Distress HEENT: Reports: Pupils Equal, Pupils Reactive, EOMI Neck: Reports: Supple Lungs: Reports: Clear to Auscultation, Normal Respiratory Effort Cardiovascular: Reports: Regular Rate, Regular Rhythm GI/Abdominal Exam: Normal Bowel Sounds, Soft, Non-Tender, No Organomegaly, Guarding. No: Rigid, Rebound, Tender (Female) Exam: Deferred Rectal (Female) Exam: Deferred Back Exam: Reports: Normal Inspection, Full Range of Motion Extremities: Normal Inspection, Normal Range of Motion, Non-Tender, No Pedal Edema, Normal Capillary Refill Skin: Reports: Warm, Dry, Intact Neurological: Reports: No New Focal Deficit Psy/Mental Status: Reports: Alert, Normal Affect, Normal Mood
== END 2017-10-13 13:40 | disposition home or self-care (01) | DRG 249 ==
LOC: LL.ED 18:29 → LL.MS 20:44 → UNDOADMIN 20:44 → LL.MS 20:59
PROVIDERS: ADMIT Family Medicine; ATTEND Family Medicine
DX: E86.0 Dehydration (principal); F41.8 Other specified anxiety disorders; A08.4 Viral intestinal infection, unspecified; M15.0 Primary generalized (osteo)arthritis; R00.1 Bradycardia, unspecified; E83.42 Hypomagnesemia; N94.6 Dysmenorrhea, unspecified; E88.09 Other disorders of plasma-protein metabolism, not elsewhere classified; G89.29 Other chronic pain; M54.5 Low back pain; R79.89 Other specified abnormal findings of blood chemistry; Z79.3 Long term (current) use of hormonal contraceptives; Z79.899 Other long term (current) drug therapy; Z88.2 Allergy status to sulfonamides
CPT/HCPCS: 36415; 71046; 71275; 74022; 80053; 80305-QW; 81001; 82150; 82272; 82550; 82553; 82607; 82746; 83540; 83550; 83605; 83690; 83735; 83880; 84484; 84550; 84703; 85025; 85379; 85610; 85730; 87040; 87086; 87186; 87338; 93005; 93970; 96361; 96374; 96375; 99285; A9270-GY; C9113; G0480; J0696; J2060; J2405; J2765; J3475; J3490; J7050; J7120; Q9967

== ENCOUNTER 2019-03-18 01:56 | Emergency (ER) | payer BC ==
[2019-03-18] MEDS: Ondansetron 4 MG Tab.DIS PO ONE (02:25)
[2019-03-18] MEDS: Loperamide 2 MG Tab PO ONE (02:29)
--- NOTE | 2019-03-18 02:31 | EDM.PDOC ---
ED HPI GENERAL MEDICAL PROBLEM - General Chief Complaint: Gastrointestinal Problem Stated Complaint: N/V/D Time Seen by Provider: 03/18/19 02:08 Source of Information: Reports: Patient History Limitations: Reports: No Limitations - History of Present Illness INITIAL COMMENTS - FREE TEXT/NARRATIVE: Patient brought in from [facility] due to nausea/emesis/loose stools. Reports having long standing issues with loose stools. Recently started gluten-free diet. Says grandmother had celiac disease. Usually does not have emesis however. Had two episodes while at work tonight. No fevers. Denies HEENT changes/headache/body aches. No ST/runny nose/ congestion. No respiratory complaints such as cough/wheeze/SOB. No hematemesis/hematochezia. No abdominal pain/back pain. Denies urinary changes/UTI symptoms. Denies . No focal neuro changes. Abdominal Pain Score (Numeric/FACES): 3 - Related Data Allergies Allergy/AdvReac Type Severity Reaction Status Date / Time Sulfa (Sulfonamide Allergy Itching Verified 03/18/19 02:01 Antibiotics) Home Meds: Home Meds Ethinyl Estradiol/Drospirenone [Ocella 3 MG-0.03 MG] 1 cap PO DAILY 04/05/17 [ History] FLUoxetine HCl [Prozac] 2 cap PO DAILY 04/05/17 [History] Ibuprofen [Advil] 400 mg PO Q6HR PRN 04/05/17 [History] LORazepam [Lorazepam] 1 mg PO 2100 03/18/19 [History] Past Medical History HEENT History: Reports: None Cardiovascular History: Reports: Syncope, Other (See Below) Other Cardiovascular History: Vasovagal syncope with blood draws with no previous workup. Patient does not know her cholesterol status. Respiratory History: Reports: None Gastrointestinal History: Reports: Other (See Below) (frequent/chronic loose stools) Genitourinary History: Reports: None SURG TECH History: Reports: None Other SURG TECH History: LMP on 10/08/17 with chronic dysmenorrhea. Musculoskeletal History: Reports: Arthritis, Back Pain, Chronic, Osteoarthritis Other Musculoskeletal History: Scoliosis Neurological History: Reports: None Psychiatric History: Reports: ADHD, Anxiety, Depression Other Psychiatric History: Pt is not on any medication for these. Pt stated that she "grew out of them" Endocrine/Metabolic History: Reports: None Hematologic History: Reports: None Immunologic History: Reports: None Oncologic (Cancer) History: Reports: None Dermatologic History: Reports: None, Other (See Below) Other Dermatologic History: Acne. History of tinea versicolor. - Infectious Disease History Infectious Disease History: Reports: None - Past Surgical History Head Surgeries/Procedures: Reports: None HEENT Surgical History: Reports: Other (See Below) Other HEENT Surgeries/Procedures: Pt states that she "had something removed from her lip when she was 7 years old" Cardiovascular Surgical History: Reports: None Respiratory Surgical History: Reports: None GI Surgical History: Reports: None Female Surgical History: Reports: None Endocrine Surgical History: Reports: None Neurological Surgical History: Reports: None Musculoskeletal Surgical History: Reports: None Oncologic Surgical History: Reports: None Dermatological Surgical History: Reports: None - Past Imaging History Past Imaging History: Reports: None Social & Family History - Family History HEENT: Reports: Glaucoma, Other (See Below) Other HEENT Family History: Maternal grandmother with glaucoma and diabetic retinopathy. Cardiac: Reports: CAD, Heart Failure, Hypertension, AK, Other (See Below) Other Cardiac Family History: Paternal grandmother history of recurrent MIs and CHF with initial AK at age 57 with CABG 3 at that time and subsequent PTCA/ stents. Father with hypertension. Respiratory: Reports: None GI: Reports: Celiac Disease, Other (See Below) Other GI Family History: Paternal grandmother with celiac disease. : Reports: None OBGYN: Reports: Other (See Below) Other OBGYN Family History: Severe dysmenorrhea in 2 sisters. Musculoskeletal: Reports: None Neurological: Reports: TIA, Other (See Below) Other Neurological Family History: Paternal grandmother's history of recurrent TIAs. Psychiatric: Reports: Anxiety, Depression, Other (See Below) Other Psychiatric Family History: Anxiety depression disorder in mother, maternal grandmother, and sister. Endocrine/Metabolic: Reports: Diabetes, type II, IDDM, Other (See Below) Other Endocrine/Metabolic Family History: Maternal grandmother with IDDM. Hematologic: Reports: None Immunologic: Reports: None Dermatologic: Reports: Eczema, Other (See Below) Other Dermatologic Family History: Mother with eczema. Oncologic: Reports: None - Tobacco Use Smoking Status *Q: Never Smoker Second Hand Smoke Exposure: No - Caffeine Use Caffeine Use: Reports: None - Recreational Drug Use Recreational Drug Use: Yes Recreational Drug Type: Reports: Marijuana/Hashish - Living Situation & Occupation Living situation: Reports: Single (No children), Other (With roommates) Occupation: Employed ([employer] at [employer]) ED ROS GENERAL - Review of Systems Review Of Systems: Comprehensive ROS is negative, except as noted in HPI. ED EXAM, GENERAL - Physical Exam Exam: See Below Exam Limited By: No Limitations General Appearance: Alert, WD/WN, No Apparent Distress Eye Exam: Bilateral Eye: EOMI, PERRL Ears: Hearing Grossly Normal Nose: No: Nasal Deformity, Nasal Swelling, Nasal Drainage Throat/Mouth: Normal Lips, Normal Voice, No Airway Compromise Head: Atraumatic, Normocephalic Neck: Normal Inspection, Supple, Non-Tender, Full Range of Motion Respiratory/Chest: No Respiratory Distress, Lungs Clear, Normal Breath Sounds, No Accessory Muscle Use, Chest Non-Tender Cardiovascular: Regular Rate, Rhythm, No Edema, No Murmur GI/Abdominal: Normal Bowel Sounds, Soft, Non-Tender, No Distention (Female) Exam: Deferred Rectal (Female) Exam: Deferred Back Exam: Normal Inspection. No: CVA Tenderness (L), CVA Tenderness (R), Muscle Spasm, Paraspinal Tenderness, Vertebral Tenderness Extremities: Normal Inspection, Non-Tender, Normal Capillary Refill Neurological: Alert, Oriented, Normal Cognition, Normal Gait Psychiatric: Normal Affect, Normal Mood Skin Exam: Warm, Dry, Intact, Normal Color Course - Vital Signs Last Recorded V/S: Last Vital Signs Temp 36.6 C 03/18/19 01:57 Pulse 71 03/18/19 01:57 Resp 20 03/18/19 01:57 BP 108/60 03/18/19 01:57 Pulse Ox 100 03/18/19 01:57 - Orders/Labs/Meds Orders: Active Orders 24 hr Category Date Time Status HCG QUALITATIVE,SERUM [CHEM] Stat Lab 03/18/19 02:23 Ordered Promethazine [Phenergan] Med 03/18/19 03:26 Once 25 mg IM ONETIME ONE Labs: Laboratory Tests 03/18/19 03/18/19 Range/Units 02:55 02:55 WBC 11.6 H (4.0-10.2) K/uL RBC 4.34 (3.77-5.09) M/uL Hgb 12.9 D (11.7-15.5) g/dL Hct 38.9 (34.0-46.0) % MCV 89.6 (84.0-98.0) fL MCH 29.7 (28.2-33.3) pg MCHC 33.2 (31.7-36.0) g/dL RDW 12.7 (11.2-14.1) % Plt Count 328 D (150-350) K/uL Neut % (Auto) 83.4 H (45.0-80.0) % Lymph % (Auto) 10.1 (10.0-50.0) % [place] % (Auto) 4.5 (2.0-14.0) % Eos % (Auto) 1.7 (0.0-5.0) % Baso % (Auto) 0.3 (0.0-2.0) % Neut # (Auto) 9.71 H (1.40-7.00) K/uL Lymph # (Auto) 1.17 (0.50-3.50) K/uL [place] # (Auto) 0.52 (0.00-1.00) K/uL Eos # (Auto) 0.20 (0.00-0.50) K/uL Baso # (Auto) 0.04 (0.00-0.20) K/uL Sodium 141 (136-145) mmol/L Potassium 4.0 (3.5-5.1) mmol/L Chloride 104 (98-107) mmol/L Carbon Dioxide 25.9 (21.0-32.0) mmol/L BUN 9 (7-18) mg/dL Creatinine 0.74 (0.51-1.17) mg/dL Est Cr Clr Drug Dosing 99.03 mL/min Estimated GFR (MDRD) > 60 mL/min Glucose 109 H (74-106) mg/dL Calcium 9.2 (8.5-10.1) mg/dL Magnesium 2.1 (1.8-2.4) mg/dL Total Bilirubin 0.3 (0.2-1.0) mg/dL AST 19 (15-37) U/L ALT 23 (12-78) U/L Alkaline Phosphatase 59 (46-116) IU/L Total Protein 8.0 (6.4-8.2) g/dL Albumin 4.4 (3.4-5.0) g/dL Meds: Medications Discontinued Medications Generic Name Dose Route Start Last Admin Trade Name Loki PRN Reason Stop Dose Admin Loperamide HCl 4 mg 03/18/19 02:24 03/18/19 02:29 Imodium Ad PO 03/18/19 02:25 4 mg ONETIME ONE Administration Ondansetron HCl 4 mg 03/18/19 02:23 03/18/19 02:25 Zofran Odt PO 03/18/19 02:24 4 mg ONETIME ONE Administration - Re-Assessments/Exams Free Text/Narrative Re-Assessment/Exam: Patient feels that the loose stools are similar to those she has been experiencing for some time. The emesis is out of character. She would like to be tested for celiac disease. We discussed that such testing would need to be performed through her primary care provider as was not ER-appropriate. Baseline labs requested. Patient did not feel that she could give UA specimen. Zofran and Imodium ordered. 03/18/19 03:26 single additional emesis. Phenergan added. Suspect gastroenteritis. Vital signs stable/patient well hydrated. OK to go home and rest. [employer]cat work note given to patient. Departure - Departure Time of Disposition: 03:20 Disposition: Home, Self-Care 01 Condition: Good Clinical Impression: Vomiting and diarrhea - Discharge Information *PRESCRIPTION DRUG MONITORING PROGRAM REVIEWED*: Not Applicable *COPY OF PRESCRIPTION DRUG MONITORING REPORT IN PATIENT NIKI: Not Applicable Instructions: Nausea and Vomiting, Adult, [id number] Forms: ED Department Discharge Additional Instructions: Home, rest, stay hydrated. Make an appointment to follow up with a primary care provider regarding a formal workup for celiac and ongoing issues with loose stools. Consider going both gluten and dairy free in the meantime and see if that helps your symptoms. Sepsis Event Note - Evaluation Sepsis Screening Result: No Definite Risk - Focused Exam Vital Signs: Vital Signs Temp Pulse Resp BP Pulse Ox 03/18/19 01:57 36.6 C 71 20 108/60 100 Date Exam was Performed: 03/18/19 Time Exam was Performed: 03:26 - My Orders Last 24 Hours: My Active Orders 03/18/19 02:23 HCG QUALITATIVE,SERUM [CHEM] Stat 03/18/19 03:26 Promethazine [Phenergan] 25 mg IM ONETIME ONE - Assessment/Plan Last 24 Hours: My Active Orders 03/18/19 02:23 HCG QUALITATIVE,SERUM [CHEM] Stat 03/18/19 03:26 Promethazine [Phenergan] 25 mg IM ONETIME ONE
[2019-03-18 03:17] LABS: CHLORIDE,CL 104 mmol/L (98-107); SODIUM,NA 141 mmol/L (136-145)
[2019-03-18] MEDS: Promethazine 25 MG/ML SDV IM ONE (03:31)
== END 2019-03-18 03:42 | disposition home or self-care (01) ==
LOC: LL.ED 01:56
DX: R11.2 Nausea with vomiting, unspecified (principal); R19.7 Diarrhea, unspecified; F32.9 Major depressive disorder, single episode, unspecified; F41.9 Anxiety disorder, unspecified; Z79.899 Other long term (current) drug therapy; Z88.2 Allergy status to sulfonamides
CPT/HCPCS: 36415; 80053; 83735; 84703; 85025; 96372; 99284-25; A9270-GY; J2550